=== PATIENT | male | born 1980 | race Caucasian/White ===

== ENCOUNTER 2017-07-06 17:53 | Emergency (ER) | payer BC, SELFPAY ==
[2017-07-06 17:53] VITALS: BP 145/77; PULSE 102; RESP 16; TEMP 37.1; O2SAT 97; BMI 31.7
--- NOTE | 2017-07-06 18:09 | ED.DEP ---
ED Disposition - Plan for ED Patient: Disposition: Home or Assisted Living Chief Complaint: Abd Pain Instructions: ED Gastroenteritis Viral, Dental Abscess Prescriptions: Ondansetron [Zofran Odt] 4 mg PO Q8H PRN PRN #7 tab PRN Reason: Nausea Penicillin V Potassium 500 mg PO 4X/DAY #40 tab Referrals: Care Physician,No Primary [Primary Care Provider] - Additional Instructions: Zofran as needed for nausea. Pen-Vee K for dental infection. Call and follow-up with a dentist as soon as possible. Most likely your nausea, vomiting diarrhea is from a viral gastroenteritis. If you have increasing and worsening abdominal pain or not getting better return to the ER for further evaluation. Plenty of fluids and rest.
--- NOTE | 2017-07-06 18:09 | ED.RN ---
PT DENIES N/V/D FOR THIS NURSE. PT MAIN COMPLAINT IS HIS TEETH.
--- NOTE | 2017-07-06 18:17 | ED.DCSUM_ITS ---
- ER Visit Summary Date of Service: 07/06/17 Chief Complaint: Dental pain and right lower jaw swelling. Also nausea, vomiting diarrhea last 2 days. History of Present Illness: The patient is a 36 M c/o nausea, vomiting diarrhea last 2 days. Denies any fever. No dysuria. No melena. Mild epigastric abdominal discomfort. Also right lower jaw dental pain with gum swelling and poor dentition. Patient has appointment [facility] [place] [facility] next week. He has no primary care physician. Physical Examination: Middle-aged male no acute distress vital signs are stable afebrile. He does not look septic or toxic. He does not look significantly dehydrated. HEENT exam he has very poor dentition. Multiple missing and decaying teeth. Cavities and gingivitis. No current abscess that needs to be drained at this time. Mild swelling of the right lower anterior jaw. No trismus. No trouble swallowing or breathing. No Sherman's angina. Neck nontender no lymphadenopathy. Lungs clear to auscultation bilaterally. Heart regular rate and rhythm no murmur. Abdomen soft nondistended normal bowel sounds no peritoneal signs. Both the right upper right lower quadrants are unremarkable. He has very minimal epigastric discomfort. He is moving all 4 extremities. They are neurovascularly intact. No edema. Back exam nontender. Neurologic exam is normal. Test Results: None Emergency Department Course and Treatment: Patient's history and exam is consistent with a viral gastroenteritis. He has poor dentition with early dental infection which will be treated with Pen-Vee K. Zofran for nausea. Follow-up with dentist. Treatment Plan: [] Disposition: Discharge Impression: Dental cavities, decay and gingivitis. Acute nausea vomiting diarrhea secondary to viral gastroenteritis This note was generated with [employer] dictation software. It may contain incorrect words, spelling, and punctuation that were not noted in review of the chart prior to signing ED Disposition - Plan for ED Patient: Disposition: Home or Assisted Living Chief Complaint: Abd Pain Instructions: Dental Abscess, ED Gastroenteritis Viral Prescriptions: Ondansetron [Zofran Odt] 4 mg PO Q8H PRN PRN #7 tab PRN Reason: Nausea Penicillin V Potassium 500 mg PO 4X/DAY #40 tab Referrals: Care Physician,No Primary [Primary Care Provider] - Additional Instructions: Zofran as needed for nausea. Pen-Vee K for dental infection. Call and follow-up with a dentist as soon as possible. Most likely your nausea, vomiting diarrhea is from a viral gastroenteritis. If you have increasing and worsening abdominal pain or not getting better return to the ER for further evaluation. Plenty of fluids and rest.
== END 2017-07-06 18:26 | disposition home or self-care (01) ==
LOC: ED 18:24
PROVIDERS: Emergency Provider Emergency Medicine
DX: K05.10 Chronic gingivitis, plaque induced (principal); K02.9 Dental caries, unspecified; A08.4 Viral intestinal infection, unspecified; R11.2 Nausea with vomiting, unspecified; R19.7 Diarrhea, unspecified; Z72.0 Tobacco use
CPT/HCPCS: 99282

== ENCOUNTER 2017-07-28 10:23 | Emergency (ER) | payer BC, SELFPAY ==
[2017-07-28 10:24] VITALS: BP 157/84; PULSE 107; RESP 16; TEMP 37; O2SAT 97; BMI 35.1
--- NOTE | 2017-07-28 10:39 | ED.VISSUMM ---
- ER Visit Summary Date of Service: 07/28/17 Chief Complaint: [] Nausea/vomiting History of Present Illness: The patient is a 36 M [] complaining of nausea/vomiting, abdominal pain, body aches, cough during flu season. Patient reports subjective fever. Denies significant past medical history. Physical Examination: [] Afebrile, vital signs stable. Middle-age male no acute distress. Cardiovascular exam is regular rate and rhythm. Lungs are clear to auscultation. Abdomen is soft and nontender. Test Results: [] No diagnostic or laboratory testing was warranted. Emergency Department Course and Treatment: [] Patient given intravenous fluid bolus, Phenergan, Toradol. On serial exam had improvement of symptoms. He was given a short-term prescription for Phenergan. Treatment Plan: [] Follow-up with PCP. Disposition: [] Discharge, stable. Impression: [] URI Dehydration This note was generated with [employer] dictation software. It may contain incorrect words, spelling, and punctuation that were not noted in review of the chart prior to signing ED Disposition - Plan for ED Patient: Chief Complaint: General Illness Referrals: Care Physician,No Primary [Primary Care Provider] -
--- NOTE | 2017-07-28 10:40 | ED.DEP ---
ED Disposition - Plan for ED Patient: Disposition: Home or Assisted Living Chief Complaint: General Illness Instructions: ED Flu Prescriptions: ProMETHAzine [Phenergan] 25 mg PO Q6H PRN PRN #20 tab PRN Reason: Nausea Referrals: Care Physician,No Primary [Primary Care Provider] -
[2017-07-28] MEDS: 0.9% Normal Saline 1,000 ML 1000 ML IV (10:49)
[2017-07-28] MEDS: Ketorolac 15 MG/ML Vial IV (10:50)
[2017-07-28 11:43] VITALS: BP 97/59; PULSE 75; RESP 16; O2SAT 98
== END 2017-07-28 11:44 | disposition home or self-care (01) ==
PROVIDERS: Emergency Provider Emergency Medicine
DX: J06.9 Acute upper respiratory infection, unspecified (principal); E86.0 Dehydration
CPT/HCPCS: 96361; 96374; 96375; 99284; J7030; A4216

== ENCOUNTER 2017-11-13 07:09 | Emergency (ER) | payer SELFPAY ==
[2017-11-13 07:10] VITALS: BP 141/78; PULSE 109; RESP 18; TEMP 36.4; O2SAT 99; BMI 34.0
--- NOTE | 2017-11-13 07:29 | ED.DCSUM_ITS ---
- ER Visit Summary Date of Service: 11/13/17 Chief Complaint: Dental pain History of Present Illness: The patient is a 37 M with no primary care physician or dentist. He reports he has pain in his right mandibular first premolar that began yesterday. Says sharp pain in 7-10 at worst and 410 currently. Is worsened by eating and relieved by ibuprofen. He denies any fever or other complaints. Physical Examination: Vitals: Stable. Afebrile. Mouth: No trismus. No edema of the floor of the mouth. Pain with percussion of right mandibular first premolar which has obvious caries and erosion. No focal abscess. He does have widespread dental decay. There is mild soft tissue swelling of the right mandible. General: A&O x 3. NAD. Cardiovascular exam: Regular rate and rhythm, no murmur, rub or gallop. Respiratory exam: Clear to auscultation bilaterally. No wheezes or stridor. Abdominal exam: Soft, nontender, nondistended, normal bowel sounds. No peritoneal signs. Extremity: No clubbing, cyanosis, or edema. Emergency Department Course and Treatment: Patient reports that his pain is controlled and that he can control this with NSAIDs at home. He was given a dose of penicillin here. Treatment Plan: Patient will be discharged on penicillin instructed to follow- up the dentist as soon as possible. Return to the emergency department for any worsening symptoms. Disposition: To home in improved and stable condition. Impression: 1. Dental abscess. This note was generated with [employer] dictation software. It may contain incorrect words, spelling, and punctuation that were not noted in review of the chart prior to signing ED Disposition - Plan for ED Patient: Disposition: Home or Assisted Living Chief Complaint: Dental Instructions: ED Abscess Dental Prescriptions: Penicillin V Potassium 500 mg PO 4X/DAY #40 tablet Referrals: Dentist,Your [STAFF PHYSICIAN] - As soon as possible
[2017-11-13] MEDS: Penicillin Vk 250 MG Tablet 500 MG PO (07:36)
== END 2017-11-13 07:40 | disposition home or self-care (01) ==
LOC: ED 07:29
PROVIDERS: Emergency Provider Emergency Medicine
DX: K04.7 Periapical abscess without sinus (principal); K02.9 Dental caries, unspecified; Z72.0 Tobacco use
CPT/HCPCS: 99283

== ENCOUNTER 2018-08-23 19:20 | Emergency (ER) | payer SELFPAY ==
[2018-08-23 19:20] VITALS: BMI 31.7
[2018-08-23 19:21] VITALS: BP 152/85; PULSE 99; RESP 18; TEMP 36.6; O2SAT 96; BMI 34.7
--- NOTE | 2018-08-23 19:43 | ED.VISSUMM ---
- ER Visit Summary Date of Service: 08/23/18 Chief Complaint: Dental and facial pain History of Present Illness: The patient is a 37 M who presents with dental and facial pain that is been getting worse over the past couple days. Patient describes pain as throbbing and aching. Patient states the pain is over the upper incisors and gingiva. Patient denies any fevers. Patient denies any hot or cold sensitivity. Physical Examination: Vital signs are stable. Patient is afebrile. Patient is in no acute distress. Oral mucosa is pink and moist. There are multiple dental caries. There is tenderness and some mild gingival edema noted over the right upper central and lateral incisors. There is no fluctuance. There is no discharge or drainage noted. Oropharynx is clear. Neck is supple. Trachea is midline. There is no JVD noted. Emergency Department Course and Treatment: Patient was given a prescription for Pen-Vee K. Patient was instructed to follow-up with a dentist in 7-10 days. Patient understood and was agreeable with the plan. All questions were answered. Disposition: Discharge home Impression: Infected dental caries This note was generated with [employer] dictation software. It may contain incorrect words, spelling, and punctuation that were not noted in review of the chart prior to signing ED Disposition - Plan for ED Patient: Disposition: Home or Assisted Living Diagnosis: Infected dental caries Instructions: ED Tooth Pain, ED Cavity Dental Prescriptions: Penicillin V Potassium 500 mg PO 4X/DAY #40 tab Referrals: Care Physician,No Primary [Primary Care Provider] -
[2018-08-23 19:51] VITALS: RESP 18
== END 2018-08-23 19:52 | disposition home or self-care (01) ==
PROVIDERS: Emergency Provider Emergency Medicine
DX: K02.9 Dental caries, unspecified (principal); B99.8 Other infectious disease; Z72.0 Tobacco use
CPT/HCPCS: 99282

== ENCOUNTER 2019-05-28 15:40 | Emergency (ER) | payer SELFPAY ==
[2019-05-28 15:41] VITALS: BP 164/81; PULSE 88; RESP 16; TEMP 36.7; O2SAT 97; BMI 34.0
--- NOTE | 2019-05-28 16:07 | ED.VIS.INJ ---
History of Present Illness Chief Complaint: Laceration Narrative: Patient presenting for evaluation secondary to a lip laceration. Patient was tying down a load on his truck when a bungee cord snapped and hooked his lower lip. He has lacerations both on the inside and the outside of the lip as the hook went through and through. His tetanus status is greater than 10 years. Patient reports only mild pain worse with palpation. No other associated symptoms. Past Medical History - Allergies and Home Meds Allergies/Adverse Reactions: Allergies No Known Allergies Allergy (Verified 08/23/18 19:23) Primary Care Physician: Care Physician,No Primary [Primary Care Provider] - Past Medical History: None Surgical History: no surgical history Smoking Status: Current every day smoker Alcohol: None Drugs: None Review of Systems General: Denies: Fever Eyes: Denies: Visual changes - bilaterally Respiratory: Denies: Dyspnea Gastrointestinal: Denies: Vomiting Skin: Reports: Wounds Neurological: Denies: Headache Hematologic: Denies: Easy bruising, Easy bleeding Allergy: Denies: Swelling of the mouth, Swelling of the tongue Physical Exam Vital Signs/Narrative: Vital Signs Temp Pulse Resp BP Pulse Ox 05/28/19 15:41 98.1 F 88 16 164/81 H 97 Inital Vital Signs reviewed: Yes General: Well nourished, Well developed Head: Normocephalic Eyes: EOMI ENT: - - Oral exam demonstrates the patient have a through and through laceration on the right side of the lip. The outer portion of the laceration measures mainly only about a half a centimeter, the inner portion of the laceration on the oral mucosa is maybe a centimeter and 1/2 to 2 cm. No evidence of dental injury. No trismus. Neck: Full ROM Cardiovascular: Regular rate Respiratory: No distress Skin: Normal color Neurological: Alert, Oriented x3 Psychological: Normal affect Diagnostic/Tx/Re-eval - Medical Decision Making Patient presented secondary to a lip laceration. Wound was addressed as noted in the procedure note. Tetanus status was updated. Patient was discharged with instructions on how to keep his intraoral laceration clean, and follow-up for suture removal in 3 to 5 days. Laceration No standard instances Comment: There was a lower lip outer laceration that was directly on the vermilion border and measures may be about 5 mm. There was a mucosal laceration directly opposing that laceration that measures may be 2 cm. Wounds were anesthetized with a total of 2 cc of 1% lidocaine with epinephrine with good anesthesia. The wounds were then probed with a 14-gauge Angiocath, and did not appear to communicate surprisingly. The mucosa wound was irrigated with 200 cc of sterile saline under pressure with an Angiocath and then was approximated using a single simple interrupted 5-0 Vicryl fast-absorbing suture. The outer wound was irrigated with a total of 150 cc of saline, and then the vermilion border was approximated using a 5-0 Vicryl fast-absorbing suture. Patient tolerated this well. ED Disposition - Plan for ED Patient: Disposition: Home or Assisted Living Diagnosis: Lip laceration Instructions: LACERATION, Lip/Mouth Additional Instructions: Follow-up with your primary care physician in 3 to 5 days for suture removal
[2019-05-28] MEDS: Diphth,Pertuss(Acell),Tet Vac 0.5 ML Vial IM (16:14)
[2019-05-28] MEDS: BACITRACIN 15 GM Tube 1 APPLIC TOPICAL (17:44)
== END 2019-05-28 17:49 | disposition home or self-care (01) ==
PROVIDERS: Emergency Provider Emergency Medicine
DX: S01.511A Laceration without foreign body of lip, initial encounter (principal); S01.512A Laceration without foreign body of oral cavity, initial encounter; W26.8XXA Contact with other sharp object(s), not elsewhere classified, initial encounter; Y93.9 Activity, unspecified; Y92.9 Unspecified place or not applicable; F17.200 Nicotine dependence, unspecified, uncomplicated
CPT/HCPCS: 12011; 90715; 99283

== ENCOUNTER 2019-11-07 12:43 | Emergency (ER) | payer SELFPAY ==
[2019-11-07 12:45] VITALS: BP 152/69; PULSE 98; RESP 16; TEMP 36.8; O2SAT 97; BMI 35.1
--- NOTE | 2019-11-07 12:59 | EKG12_ITS ---
Test Reason : CP Blood Pressure : / mmHG Vent. Rate : 091 BPM Atrial Rate : 091 BPM P-R Int : 118 ms QRS Dur : 090 ms QT Int : 354 ms P-R-T Axes : 039 032 039 degrees QTc Int : 435 ms Normal sinus rhythm Normal ECG Confirmed by DARRELL CARRIZALES, GIANFRANCO ([id number]), video tape editor EUGENIA JUNIOR ([id number]) on 11/11/2019 2:03:38 PM Referred By: FAROOQ Confirmed By:SHAUNA RAMÍREZ MD
--- NOTE | 2019-11-07 12:59 | RAD_ITS ---
STUDY: X-RAY CHEST REASON FOR EXAM: Male, 39 years old. MID CHEST PAINS TECHNIQUE: Single AP portable view of the chest. COMPARISON: Comparison is made with prior study dated January 28, 2016. FINDINGS: EKG electrodes are seen. The lungs are clear and expanded. There is no demonstrated pleural abnormality. Normal size heart. Normal mediastinum and kuldip. Normal visualized pulmonary arteries. Normal visualized aortic arch and descending thoracic aorta. Normal visualized thoracic spine. Normal visualized ribs, clavicles, and shoulders. There is no demonstrated abnormality of the visualized soft tissue structures of the upper abdomen. RAD/Chest 1 View (Portable) IMPRESSION: Normal x-ray examination of the chest. Electronically Signed: Js Blackwell, at 13:52 EDT , Service support ,
[2019-11-07] MEDS: Aspirin 81 MG TAB.CHEW 324 MG PO (13:08)
--- NOTE | 2019-11-07 13:09 | CT_ITS ---
STUDY: CTA CHEST REASON FOR EXAM: Male, 39 years old. RT SIDED PLEURITIC CP, DYSPNEA RADIATION DOSAGE (If Supplied By Facility): CTDIvol = ( 14.99 ) mGy, DLP = ( 532.83 ) mGycm TECHNIQUE: The examination was performed with the intravenous administration of 100 CC ISOVUE 370. Post-processing of the angiographic images was performed, with multiplanar reformation and 3D reconstruction. Individualized dose optimization techniques were used for this CT. COMPARISON: Comparison is made with prior study dated January 28, 2016. FINDINGS: Small benign-appearing bilateral axillary lymph nodes. Normal enhancement of the main pulmonary artery and right and left pulmonary arteries. Normal enhancement of the bilateral peripheral pulmonary arteries. There is no demonstrated pulmonary embolism. Normal thoracic aorta and visualized great vessels. There is no demonstrated aortic dissection. Normal heart and pericardium. Normal mediastinum. Normal hilar regions. Normal visualized trachea and bronchi. The lungs are well expanded. There is a 6.3 mm noncalcified nodule in the peripheral aspect of the left upper lobe as seen on axial image #134 and coronal image #110. Normal pleura. Normal chest wall structures. Normal osseous structures. Small hiatal hernia. CT/CTA Chest W/WO Contrast IMPRESSION: No evidence of pulmonary embolism. 6.3 mm noncalcified nodule in the peripheral aspect of the left upper lobe as seen on axial image #134. A 12 month follow-up examination is recommended. Electronically Signed: Js Blackwell, at 14:30 EDT , Service support ,
[2019-11-07 13:10] VITALS: BP 129/85; PULSE 96; RESP 25; O2SAT 97
--- NOTE | 2019-11-07 13:11 | ED.VISSUMM ---
- ER Visit Summary Date of Service: 11/07/19 Chief Complaint: Right Sided pleuritic chest pain History of Present Illness: The patient is a 39 M patient in past medical history. 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 States on Monday 2 days ago he started having right-sided chest pain that is worse with deep breathing. Denies any hemoptysis. Not associated with exertion. No radiation to his jaw, arms or back. No hemoptysis. Mild shortness of breath. No history of DVT or PE. No leg pain or swelling. No melena. He is never had any cardiac disease. He does occasionally smoke. Physical Examination: Middle-aged male no acute distress vital signs stable afebrile pulse ox 97% room air no signs hypoxia. H EENT exam unremarkable. Neck nontender no JVD. Lungs clear to auscultation bilaterally. Heart regular rhythm rate about 89 no murmur. Chest wall is nontender. Abdomen soft nontender normal bowel sounds no peritoneal signs. Remedies moves all 4. Calves nontender no edema no cords. Neurologically is awake alert with no focal motor deficits. Test Results: Chest x-ray portable 1 view read by myself and the radiologist as no acute abnormality. Right leg CTA of the chest shows no PE nor dissection. There is an incidental finding of a left upper lobe nodule 6.3 mm as I discussed with the patient and will need to be re-evaluated in 6 to 12 months. No ischemia. CBC white count 12.9. Hemoglobin 15. Chemistries normal. Troponin normal. Emergency Department Course and Treatment: Patient with right-sided pleuritic chest pain that has risk factor of blood clots and PE due to his job which is a long-distance team otr truck driver. Undergo a cardiac and a pulmonary emboli work-up including a CTA. Treated with a liter of normal saline. Repeat exam patient is doing well at 1540. Patient is comfortable being discharged to home. He and I discussed all his test results including the nodule. Treatment Plan: Tylenol and/or Motrin for pain. Follow-up smoking. Outpatient follow-up. Return if worse. Disposition: Discharge Impression: Acute right-sided pleuritic chest pain of uncertain etiology This note was generated with [employer] software. It may contain incorrect words, spelling, and punctuation that were not noted in review of the chart prior to signing ED Disposition - Plan for ED Patient: Referrals: Care Physician,No Primary [Primary Care Provider] -
[2019-11-07] MEDS: 0.9% Normal Saline 1,000 ML 999 ML IV (13:21)
[2019-11-07 13:32] LABS: Absolute Lymphocyte Count 3.72 X10^3/uL (0.83-4.51); Absolute Neutrophil Count 7.7 X10^3/uL (2.0-7.7); Basophil# 0.06 X10^3/uL; Basophil% 0.5 % (0-1); Eosinophil# 0.38 X10^3/uL; Hemoglobin 15.5 g/dL (13.0-16.5); Lymphocyte # 3.72 X10^3/ul (4.0); Lymphocyte % 28.9 % (19-41); Mean Corpuscular Hgb 29.4 pg (27.0-32.0); Mean Corpuscular Volume 89.2 fL (80-94); Mean Platelet Vol. 10.4 fl (6.2-12.0); Monocyte# 0.95 X10^3/uL; Monocyte% 7.4 % (0-10); NRBC Flagged by Analyzer 0 % (0-5); Neutrophil % 59.7 % (47-70); Platelet Count 269 K/mm3 (150-450); RBC Distribution Width CV 14.2 % (11.6-14.6); RBC Distribution Width SD 46.1 fl (35.1-43.9); Red Blood Count 5.27 M/mm3 (4.6-6.2); White Blood Count 12.9 K/mm3 (4.4-11.0)
[2019-11-07 13:46] LABS: Anion Gap 7 (5-15); BUN 20 mg/dL (7-18); BUN/Creat Ratio 19.2 RATIO (10-20); Chloride 104 mmol/L (98-107); Creatinine, Serum 1.04 mg/dL (0.70-1.30); EST Glomerular Filtration Rate 84 mL/min (>60); Est Glom Filt Rate - Afr Amer 102 mL/min (>60); Estimated Creatinine Clearance 94.42 ml/min; Glucose 121 mg/dL (74-106); Sodium Level 138 mmol/L (136-145)
--- NOTE | 2019-11-07 15:47 | ED.DEP ---
ED Disposition - Plan for ED Patient: Disposition: Home or Assisted Living Instructions: ED Chest Pain Atypical Unkn Cause Referrals: Vinny Rosas MD [STAFF PHYSICIAN] - 1 Week Additional Instructions: . Tylenol and Motrin for pain. Follow-up with a local primary care physician. Stop smoking. Return to the ER if worse. On your CAT scan you had a left upper lobe nodule which will need to be reevaluated once in 6 to 12 months.
[2019-11-07 15:52] VITALS: BP 122/60; PULSE 69; RESP 16; O2SAT 99
--- OUTSIDE RECORDS SUMMARY | 2020-03-15 11:48 | XMS RPT_ITS | CCD ---
:1980 External Reference #:[id number] Author Organization [employer] Care Team Providers Name Role Phone LILY CHING Unavailable Unavailable NO FAMILY PHYSICIAN, 837 Unavailable Unavailable NO FAMILY, PHYSICIAN Primary Care Provider Unavailable Allergies Reported Allergen Reaction(s) Severity Date of Onset Location Doxycycline Redness of Skin 12-03-2019 [facility] ([id number]) Medications Medication Name Sig Date Prescriber Location Ondansetron Ondansetron Active 4 MG 12-04-2019 [facility] Oral every 6 to 8 hours [facility] ([id number]) December 04, 2019 2:05am pantoprazole Pantoprazole Active 20 MG 12-04-2019 [facility] Daily December 03, [facility] (11418) 2019 2:05am Problems Category Problem Name Status Date Location Abdominal pain Abdominal pain Active [facility] ([id number]) Results Result Name Value Range Unit Interpretation Flag Date Location xr chest 1 view on 2020-02-05 XR CHEST 1 VIEW ORIGINAL Normal 02-05-2020 [facility] XR CHEST 1 VIEW PORTABLE AP [facility] [place] ([place] ([id number]) TIME: 10:08 PM CLINICAL STATEMENT: chest pain COMPARISON: None FINDINGS: The cardiac silhou ette is stable. There is no consolidation, vascular congestion, pleural effusion, or pneumothorax shown. There is no acute osseous abnormality demonstrated. IMPRESSION: No acute finding. I have personally reviewed t he images of this examination and agree with the resident's findings and interpretation. Interpreted By: Laith Solano MD Preliminary Report By: Vladimir Moreno MD Electronically Signed By: Laith Solano MD Dictated Date: 02/04/2020 10:34:54 PM Prelim Date: 02/04/2020 10:36:50 PM Sign Date: 02/04/2020 10:57:27 PM Ordering Provider:Jason bowen on 2020-02-05 Troponin I.cardiac <0.020 0.000-0.040 ng/mL Normal 0 [facility]Vol[facility] ([address] Comment: Result Comment: Troponin I r eference range: 0.00-0.040 ng/mL Negative an d non-diagnostic. >0.040 ng/mL Consistent with cardiac damage, increased clinical risk and possibility of myocardial in farction. Serial measurements, a rise & fall in test results, clinical histo ry, appropriate symptoms and/or ECG changes may help assess possibility of [place]. *Other non-acute coronary sy ndrome conditions such as CHF, myoc arditis, pulmonary emboli, sepsis and cardiac surgery could result in myoc ardial damage and increased troponi n levels. Performed By: #### CBC, ADIF F, ANEU, GFR, DIMER #### [address] [address] #### BMP, TROP #### [address] [address] lip on 2020-02-05 Lipase Level 68 73-393 U/L Low 02-05-2020 [facility] ([place] (59705) Comment: Performed By: #### CBC, ADIF F, ANEU, GFR, DIMER #### [address] [address] #### BMP, TROP #### [address] [address] covd19 on 9 COVID-19 Int Normal 02-05-2020 [facility] ([place] (30320) Comment: Result Comment: Negative res ults do not preclude SARS-CoV-2 infection and should not be used as the sole basis for patient management decisions. Negative results must be combined with clinical observati ons, patient history, and ep idemiological information. There is a risk of false neg ative values resulting from improperly collected, transported, or handled specimens. There is a risk of false neg ative values due to the presence of sequence variants in the pathogen targets of the assay, procedural errors, amplification inhibitors in specimens, or inadequate numbers of organisms for amplification . KALE SARS-CoV-2 Assay is a Real-Time reverse-transcriptase polymerase chain reaction (RT-PCR) based qualitative in vitro diagnostic test intended for the qualitative detection of nucleic acid from the SARS-CoV-2 in nasopharyngeal swab specimens collected from individuals suspected of COVID-19 by their healthcare provider. Testing is limited to laboratories certified under the Clinical Laboratory Impr ovement Amendments of 1988 ( CLIA), 42 U.S.C. ?263a, to perform moderate and high complexity tests. COVID-19 Int Performed By: #### CBC, ADIF F, ANEU, GFR, DIMER #### [place] [address] #### BMP, TROP #### [place] [address] COVID-19 Result Negative Negative Normal 02-05-2020 [facility] ([place] (70802) Comment: Performed By: #### CBC, ADIF F, ANEU, GFR, DIMER #### [place] [address] #### BMP, TROP #### [place] [address] Date of Onset 2020020202-05-2020 [facility] ([place] (29389) Comment: Performed By: #### CBC, ADIF F, ANEU, GFR, DIMER #### [place] [address] #### BMP, TROP #### [place] [address] Employed in Healthcare No Normal 020 [facility] ([place] (99866) Comment: Performed By: #### CBC, ADIF F, ANEU, GFR, DIMER #### [place] [address] #### BMP, TROP #### [place] [address] First Test Yes Normal 02-05-2020 [facility] ([place] (91758) Comment: Performed By: #### CBC, ADIF F, ANEU, GFR, DIMER #### [address] [address] #### BMP, TROP #### [place] [address] Hospitalized No Normal 02-05-2020 [facility] [place] (77501) Comment: Performed By: #### CBC, ADIF F, ANEU, GFR, DIMER #### [place] [address] #### BMP, TROP #### [place] [address] ICU No Normal 02-05-2020 [facility] [place] (31421) Comment: Performed By: #### CBC, ADIF F, ANEU, GFR, DIMER #### [place] [address] #### BMP, TROP #### [place] [address] Not Normal 02-05-2020 [facility] [place] (10494) Comment: Performed By: #### CBC, ADIF F, ANEU, GFR, DIMER #### [place] [address] #### BMP, TROP #### [place] [address] Resides in Congregate Care No Normal [facility] ([place] Setting (04086) Comment: Performed By: #### CBC, ADIF F, ANEU, GFR, DIMER #### [place] [address] #### BMP, TROP #### [place] [address] Symptomatic as Defined by CDC Yes Normal 02-05-2020 [facility] ([place] (0000 0) Comment: Performed By: #### CBC, ADIF F, ANEU, GFR, DIMER #### [place] [address] #### BMP, TROP #### [place] [address] cmp on 2020-02-05 Albumin [Mass/Vol] 3.7 3.5-5.0 G/dL Normal 02-05-2020 [facility] ([place] (18104) Comment: Performed By: #### CBC, ADIF F, ANEU, GFR, DIMER #### [place] [address] #### BMP, TROP #### [place] [address] Albumin/Globulin [Mass ratio] 1.0 1.1-2.5 ratio Low 02-05-2020 [facility] ([place] (06898) Comment: Performed By: #### CBC, ADIF F, ANEU, GFR, DIMER #### [place] [address] #### BMP, TROP #### [place] [address] ALP [Catalytic activity/Vol] 124 40-135 U/L Normal 0 02-05-2020 [facility] ([place] (96750) Comment: Performed By: #### CBC, ADIF F, ANEU, GFR, DIMER #### [place] [address] #### BMP, TROP #### [place] [address] ALT [Catalytic activity/Vol] 51 10-35 U/L High 0 02-05-2020 [facility] ([place] (0000 0) Comment: Performed By: #### CBC, ADIF F, ANEU, GFR, DIMER #### [place] [address] #### BMP, TROP #### [place] [id number] AST [Catalytic activity/Vol] 27 10-40 U/L Normal 0 02-05-2020 [facility] ([place] (0000 0) Comment: Performed By: #### CBC, ADIF F, ANEU, GFR, DIMER #### [place] [address] #### BMP, TROP #### [address] [address] Bili Total 0.3 0.2-1.0 mg/dL Normal 02-05-2020 [facility] ([place] (99484) Comment: Result Comment: Use of this assay is not recommended for patients undergoing treatment with eltrombopag d ue to the potential for falsely elevated results. Performed By: #### CBC, ADIF F, ANEU, GFR, DIMER #### [place] [address] #### BMP, TROP #### [address] [address] Calcium [Mass/Vol] 9.0 8.4-10.2 mg/dL Normal 02-05-2020 [facility] ([place] (0000 0) Comment: Performed By: #### CBC, ADIF F, ANEU, GFR, DIMER #### [place] [address] #### BMP, TROP #### [place] [address] Chloride [Moles/Vol] 103 98-107 mmol/L Normal 0 [facility] ([place] (0000 0) Comment: Performed By: #### CBC, ADIF F, ANEU, GFR, DIMER #### [address] [address] #### BMP, TROP #### [place] [address] CO2 [Moles/Vol] 25 22-29 mmol/L Normal 02-05-2020 [facility] ([place] (25081) Comment: Performed By: #### CBC, ADIF F, ANEU, GFR, DIMER #### [place] [address] #### BMP, TROP #### [address] [address] Creatinine [Mass/Vol] 1.09 0.70-1.30 mg/dL Normal 02-05-20 20 [facility] ([place] (20124) Comment: Performed By: #### CBC, ADIF F, ANEU, GFR, DIMER #### [address] [address] #### BMP, TROP #### [address] [address] Electrolyte Balance 11.0 mEq/L Normal 02-05-2020 [facility] ([place] (52752) Comment: Performed By: #### CBC, ADIF F, ANEU, GFR, DIMER #### [place] [address] #### BMP, TROP #### [address] [address] Globulin (S) [Mass/Vol] 3.7 G/dL Normal 2019 [facility] ([place] (30696) Comment: Performed By: #### CBC, ADIF F, ANEU, GFR, DIMER #### [place] [address] #### BMP, TROP #### [address] [address] Glucose [Mass/Vol] 100 70-105 mg/dL Normal 02-05-2020 [facility] ([place] (90605) Comment: Performed By: #### CBC, ADIF F, ANEU, GFR, DIMER #### [address] [address] #### BMP, TROP #### [address] [address] Potassium [Moles/Vol] 4.1 3.5-5.1 mmol/L Normal 02-05-20 [facility] ([place] (0000 0) Comment: Performed By: #### CBC, ADIF F, ANEU, GFR, DIMER #### [place] [id number] #### BMP, TROP #### [address] [address] Protein [Mass/Vol] 7.4 6.4-8.2 G/dL Normal 02-05-2020 [facility] ([place] (39526) Comment: Performed By: #### CBC, ADIF F, ANEU, GFR, DIMER #### [address] [address] #### BMP, TROP #### [address] [address] Sodium [Moles/Vol] 139 136-145 mmol/L Normal 02-05-2020 [facility] ([place]) (0000 0) Comment: Performed By: #### CBC, ADIF F, ANEU, GFR, DIMER #### [place] [address] #### BMP, TROP #### [address] [address] Urea nitrogen [Mass/Vol] 16 7-18 mg/dL Normal 02-04 [facility] ([place] (0000 0) Comment: Performed By: #### CBC, ADIF F, ANEU, GFR, DIMER #### [place] [address] #### BMP, TROP #### [address] [address] Urea nitrogen/Creatinine [Mass 15 7-27 ratio Normal 02-05-2020 [facility] ratio] [facility] [place] ([place] ([address]327) Comment: Performed By: #### CBC, ADIF F, ANEU, GFR, DIMER #### [address] [address] #### BMP, TROP #### [address] [address] cbc on 2020-02-05 Erythrocyte distribution 14.0 11.5-14.5 % Normal 02-04 [facility] (RBC) [Ratio] [facility] [place] ([address]22) Comment: Performed By: #### CBC, ADIF F, ANEU, TROP, LIP, CMP, GFR #### [address] [address] Hematocrit (Bld) [Volume 47.5 42.0-52.0 % Normal 02-04 [facility] fraction] ([place]) (0000 0) Comment: Performed By: #### CBC, ADIF F, ANEU, TROP, LIP, CMP, GFR #### [address] [address] Hemoglobin (Bld) 16.0 14.0-18.0 G/dL Normal 02-05-2020 [facility] [Mass/Vol] [facility] ([place] (15959) Comment: Performed By: #### CBC, ADIF F, ANEU, TROP, LIP, CMP, GFR #### [address] [address] MCH (RBC) [Entitic mass] 29.4 27.0-31.2 pg Normal 02-04 [facility] ([place]) (0000 0) Comment: Performed By: #### CBC, ADIF F, ANEU, TROP, LIP, CMP, GFR #### [address] [address] MCHC (RBC) [Mass/Vol] 33.7 31.8-35.4 G/dL Normal 02-05-20 20 [facility] ([place]) (0000 0) Comment: Performed By: #### CBC, ADIF F, ANEU, TROP, LIP, CMP, GFR #### [address] [address] MCV (RBC) [Entitic vol] 87.3 80.0-94.0 fL Normal 2019 [facility] ([place]) (0000 0) Comment: Performed By: #### CBC, ADIF F, ANEU, TROP, LIP, CMP, GFR #### [address] [address] Platelet mean volume 8.6 7.4-10.4 fL Normal 0 [facility] (Bld) [Entitic vol] ([place]) (92308) Comment: Performed By: #### CBC, ADIF F, ANEU, TROP, LIP, CMP, GFR #### [address] [address] Platelets (Bld) [#/Vol] 251 130-400 10 3/mcL Normal 2019 [facility] ([place]) (10162) Comment: Performed By: #### CBC, ADIF F, ANEU, TROP, LIP, CMP, GFR #### [address] [address] RBC (Bld) [#/Vol] 5.45 4.04-6.13 10 6/mcL Normal 02-05-2020 [facility] ([place] (0000 0) Comment: Performed By: #### CBC, ADIF F, ANEU, TROP, LIP, CMP, GFR #### [address] [address] WBC (Bld) [#/Vol] 12.60 4.60-10.80 10 3/mcL High 02-05-2020 [facility] ([place] (0000 0) Comment: Performed By: #### CBC, ADIF F, ANEU, TROP, LIP, CMP, GFR #### [address] [address] .neuabs on Neutrophils (Bld) 7.70 2.85-6.16 10 3/mcL High 02-05-2020 [facility] [#/Vol] [facility] [place] ([place] ([address]13) Comment: Performed By: #### CBC, ADIF F, ANEU, GFR, DIMER #### [address] [address] #### BMP, TROP #### [address] [address] .gfr on 2020-02-05 GFR 91 ml/min/1.73sqm Normal 09-0 [facility] ([place] (0000 0) Comment: Result Comment: GFR Population mean for Afri can Cuban, Non- Americans Ages 20-29 = 116 mL/min/1.73 sq.m. Ages 30-39 = 107 mL/min/1.73 sq.m. Ages 40-49 = 99 mL/min/1.73 sq.m. Ages 50-59 = 93 mL/min/1.73 sq.m. Ages 60-69 = 85 mL/min/1.73 sq.m. Ages 70+ = 75 mL/min/1.73 sq .m. Chronic Kidney Disease: Less than 60 mL/min/1.73 square meters End Stage Renal Disease: Les s than 15 mL/min/1.73 square meters Performed By: #### CBC, ADIF F, ANEU, GFR, DIMER #### [address] [address] #### BMP, TROP #### [address] [address] GFR Non- 75 ml/min/1.73sqm Normal 02-05-2020 [facility] ([place] (61554) Comment: Result Comment: GFR Population mean for Afri can Cuban, Non- Americans Ages 20-29 = 116 mL/min/1.73 sq.m. Ages 30-39 = 107 mL/min/1.73 sq.m. Ages 40-49 = 99 mL/min/1.73 sq.m. Ages 50-59 = 93 mL/min/1.73 sq.m. Ages 60-69 = 85 mL/min/1.73 sq.m. Ages 70+ = 75 mL/min/1.73 sq .m. Chronic Kidney Disease: Less than 60 mL/min/1.73 square meters End Stage Renal Disease: Les s than 15 mL/min/1.73 square meters Performed By: #### CBC, ADIF F, ANEU, GFR, DIMER #### [address] [address] #### BMP, TROP #### [address] [address] .auto diff on 02-04 Ammonia (P) [Mass/Vol] 1.60 0.15-1.00 10 3/mcL High 020 [facility] ([place] (30404) Comment: Performed By: #### CBC, ADIF F, ANEU, TROP, LIP, CMP, GFR #### [address] [address] Basophils (Bld) 0.10 0.00-0.19 10 3/[facility] Normal 02-05-2020 [facility] [#/Vol] [facility] [place] ([address]) Comment: Performed By: #### CBC, ADIF F, ANEU, TROP, LIP, CMP, GFR #### [address] [address] Basophils/100 WBC (Bld) 0.8 0.0-2.5 % Normal 2019 [facility] ([place] (0000 0) Comment: Performed By: #### CBC, ADIF F, ANEU, TROP, LIP, CMP, GFR #### [address] [address] Eosinophils (Bld) 0.40 0.00-0.40 10 3/mcL Normal 02-05-2020 [facility] [#/Vol] [facility] [place] ([place]) (25662) Comment: Performed By: #### CBC, ADIF F, ANEU, TROP, LIP, CMP, GFR #### [address] [address] Eosinophils/100 WBC (Bld) 2.9 0.0-7.0 % Normal [facility] ([place]) (0000 0) Comment: Performed By: #### CBC, ADIF F, ANEU, TROP, LIP, CMP, GFR #### [address] [address] Lymphocytes (Bld) 2.80 0.77-3.85 10 3/mcL Normal 02-05-2020 [facility] [#/Vol] [facility] [place] ([place] ([address]77) Comment: Performed By: #### CBC, ADIF F, ANEU, TROP, LIP, CMP, GFR #### [address] [address] Lymphocytes/100 WBC (Bld) 22.6 10.0-50.0 % Normal [facility] ([place]) (31964) Comment: Performed By: #### CBC, ADIF F, ANEU, TROP, LIP, CMP, GFR #### [address] [address] Monocytes/100 WBC (Bld) 12.9 1.7-13.0 % Normal 2019 [facility] ([place]) (0000 0) Comment: Performed By: #### CBC, ADIF F, ANEU, TROP, LIP, CMP, GFR #### [place] [address] [place], [place] [address] Neutrophils/100 WBC (Bld) 60.8 37.0-80.0 % Normal [facility] ([place]) (17629) Comment: Performed By: #### CBC, ADIF F, ANEU, TROP, LIP, CMP, GFR #### [facility] [address] [place], [place] [address] urine culture on 16-12-07 Bacteria identified 20,000 colonies/ml mixed Rachael l 12-04-2019 [facility] Cx Nom (U) bacterial skin contaminants [facility] (31768) PERFORMED BY: [address] [address] PATHOLOGIST RETAIL GENERAL MANAGER LELA NIXON M.D. Comment: Performed By: #### ADDONUAPL US, CUU #### [facility] [address] [place] [address] [place] dipstick and microscopic on 2019-12-04 Appearance (U) Clear Clear Normal 12-04-2019 [facility] (47482) Comment: Order Comment: Name Collecti on Type:: Clean-Voided Midstream Performed By: #### ADDONUAPL US, CUU #### [facility] [address] [place] [address] [place] Bacteria LM.HPF (Urine None Seen None Seen Normal [address] [place] [address]) [#/Area] [facility] Center (13655) Comment: Order Comment: Name Collecti on Type:: Clean-Voided Midstream Performed By: #### ADDONUAPL US, CUU #### [facility] [address] [place] [address] [place] Bilirubin,Urine Negative Negative Normal 12-04-2019 [facility] (00 000) Comment: Order Comment: Name Collecti on Type:: Clean-Voided Midstream Performed By: #### ADDONUAPL US, CUU #### [facility] [address] [place] [address] [place] Color (U) Yellow Yellow Normal 12-04-2019 [facility] (14671) Comment: Order Comment: Name Collecti on Type:: Clean-Voided Midstream Performed By: #### ADDONUAPL US, CUU #### [facility] [address] [place] [id number] [facility] Glucose Ql (U) Normal Normal Normal 12-04-2019 [facility] (77472) Comment: Order Comment: Name Collecti on Type:: Clean-Voided Midstream Performed By: #### ADDONUAPL US, CUU #### [facility] [address] [place] [id number] [facility] Hyaline Casts,Urine 0-8 0-8 Normal 12-04-2019 [facility] (61993) Comment: Order Comment: Name Collecti on Type:: Clean-Voided Midstream Result Comment: PERFORMED BY : [facility] [address] [place] [address] PATHOLOGIST RETAIL GENERAL MANAGER LELA NIXON M.D. Performed By: #### ADDONUAPL US, CUU #### [facility] [address] [place] [address] [facility] Ketones Ql (U) Negative Negative Normal 12-04-2019 [facility] (00 000) Comment: Order Comment: Name Collecti on Type:: Clean-Voided Midstream Performed By: #### ADDONUAPL US, CUU #### [facility] [address] [place] [address] [facility] Leukocyte esterase Test 2+ Negative High 2019 [facility] Ql (U) Center (42296) Comment: Order Comment: Name Collecti on Type:: Clean-Voided Midstream Performed By: #### ADDONUAPL US, CUU #### [facility] [address] [place] [id number] [place] Nitrite,Urine Negative Negative Normal 12-04-2019 [facility] (25193) Comment: Order Comment: Name Collecti on Type:: Clean-Voided Midstream Performed By: #### ADDONUAPL US, CUU #### [facility] [address] [place] [address] Occult Blood,Urine Trace Negative High 12-04-2019 [facility] (92478) Comment: Order Comment: Name Collecti on Type:: Clean-Voided Midstream Result Comment: PERFORMED BY : [facility] [address] [place], [place] [address] [address] PATHOLOGIST RETAIL GENERAL MANAGER LELA NIXON M.D. Performed By: #### ADDONUAPL US, CUU #### [facility] [address] [place] [address] pH (U) 5.0 5.0-9.0 [pH] Normal 12-04-2019 [facility] (17345) Comment: Order Comment: Name Collecti on Type:: Clean-Voided Midstream Performed By: #### ADDONUAPL US, CUU #### [facility] [address] [place] [address] Protein (U) [Mass/Vol] Negative Negative mg/dL Normal 020 [facility] nter (17726) Comment: Order Comment: Name Collecti on Type:: Clean-Voided Midstream Performed By: #### ADDONUAPL US, CUU #### [facility] [address] [place] [address] [place] RBC LM.HPF (Urine sed) 0-1 0-4 /[HPF] Normal 020 [facility] [#/Area] Center (00 000) Comment: Order Comment: Name Collecti on Type:: Clean-Voided Midstream Performed By: #### ADDONUAPL US, CUU #### [facility] [address] [place] [address] [place] Specificy [place],Urine 1.021 1.001-1.030 Normal [facility] nter (90828) Comment: Order Comment: Name Collecti on Type:: Clean-Voided Midstream Performed By: #### ADDONUAPL US, CUU #### [facility] [address] [place] [address] [place] Squamous Epithelial 0-1 0-2 Normal 12-04-2019 [facility] Cell,Urine Center (0 0000) Comment: Order Comment: Name Collecti on Type:: Clean-Voided Midstream Performed By: #### ADDONUAPL US, CUU #### [facility] C tr [address] [place] [address] Urobilinogen,Urine Normal Normal Normal 12-04-2019 [facility] (00 000) Comment: Order Comment: Name Collecti on Type:: Clean-Voided Midstream Performed By: #### ADDONUAPL US, CUU #### [facility] C tr [address] WBC LM.HPF (Urine sed) 10-19 0-4 High 08- 020 [facility] [#/Area] Center (00 000) Comment: Order Comment: Name Collecti on Type:: Clean-Voided Midstream Performed By: #### ADDONUAPL US, CUU #### [facility] [address] [place] [address] urine urobilinogen measurement by automa max test strip (mass/volume) on 2019-12-03 Urobilinogen (U) [Mass/Vol] Normal mg/dL Normal 12-03-2019 [facility] r (92863) urine total bilirubin detection by test strip on 2019-12-03 Bilirubin Ql (U) Negative Negative 12-03-2019 [facility] (11317) urine protein measurement by automated t est strip (mass/volume) on 2019-12-03 Protein (U) [Mass/Vol] Negative mg/dL Negative mg/dL [facility] Ct r (32273) urine ph measurement by automated test s trip on 2019-12-03 pH (U) 5.0 5.0-9.0 [pH] 12-03-2019 [facility] (90634) urine nitrite detection by test strip on 2019-12-03 Nitrite Ql (U) Negative Negative 12-03-2019 [facility] (35860) urine leukocyte esterase detection by au tomated test strip on 2019-12-03 Leukocyte esterase Auto test 2+ Negative 0 12-03-2019 [facility] strip Ql (U) Ctr (00 000) urine ketones measurement by automated t est strip (mass/volume) on 2019-12-03 Ketones (U) [Mass/Vol] Negative Negative 020 [facility] (33072 ) urine hemoglobin detection by automated test strip on 2019-12-03 Hemoglobin Auto test strip Trace Negative [facility] Ql (U) Ctr (58290 ) urine glucose measurement by automated t est strip (mass/volume) on 2019-12-03 Glucose Auto test strip Normal mg/dL Normal [facility] (U) [Mass/Vol] Medic al Ctr (72105) urine clarity by refractometry automated on 2019-12-03 Clarity Refractometry automated Clear Clear 12-03-2019 [facility] (U) Ctr (24978 ) urine bacteria detection by automated me thod on 2019-12-03 Bacteria Auto Ql (U) None seen None Seen 0 [facility] (60389 ) squamous epithelial cells detection in u rine sediment by light microscopy on 2019-12-03 Epithelial cells.squamous LM Ql 0-1 [HPF] 12-03-2019 [facility] (Urine sed) Ctr (000 00) specific gravity of urine by automated t est strip on 2019-12-03 Specific gravity (U) [Rel 1.021 1.001-1.030 [facility] density] Ctr (16985 ) serum or plasma urea nitrogen measuremen t (mass/volume) on 2019-12-03 Urea nitrogen [Mass/Vol] 14 9-23 mg/dL 12-02 [facility] (34182) serum or plasma total carbon dioxide janice surement (moles/volume) on 2019-12-03 CO2 [Moles/Vol] 23.7 22.0-30.0 mmol/L 12-03-2019 [facility] (29154) serum or plasma total bilirubin measurem ent (mass/volume) on 2019-12-03 Bilirubin [Mass/Vol] 0.3 0.3-1.2 mg/dL 0 [facility] (18395) serum or plasma sodium measurement (mole s/volume) on 2019-12-03 Sodium [Moles/Vol] 136 136-146 mmol/L 12-03-2019 [facility] (48074) serum or plasma potassium measurement (m oles/volume) on 2019-12-03 Potassium [Moles/Vol] 3.9 3.5-5.1 mmol/L 12-03-19 [facility] (66498) serum or plasma non-glucuronidated bilir ubin measurement (mass/volume) on 2019-12-03 Bilirubin.indirect [Mass/Vol] 0.2 mg/dL 12-03-2019 [facility] (80182) serum or plasma glucose measurement (mas s/volume) on 2019-12-03 Glucose [Mass/Vol] 111 70-100 mg/dL 12-03-2019 [facility] (54097) Comment: ADA recommended reference ra ngeRandom Glucose Reference Range is dependent on time and content of last meal. Glucose of more than 200 mg/dL in a nonstressed, ambulatory subj ect supports the diagnosis of Diabetes Mellitus. serum or plasma creatinine measurement w ith calculation of estimated glomerular filtr on 2019-12-03 Creatinine [Mass/Vol] 0.98 0.64-1.27 mg/dL 12-03-19 [facility] (63531 ) serum or plasma chloride measurement (mo les/volume) on 2019-12-03 Chloride [Moles/Vol] 103 95-114 mmol/L 0 [facility] (05934) serum or plasma calcium measurement (mas s/volume) on 2019-12-03 Calcium [Mass/Vol] 10.0 8.2-10.2 mg/dL 12-03-2019 [facility] (14844) serum or plasma aspartate aminotransfera se measurement (enzymatic activity/volume) on 2019-12-03 AST [Catalytic activity/Vol] 31 10-42 U/L 0 12-03-2019 [facility] (04552) serum or plasma amylase measurement (enz ymatic activity/volume) on 2019-12-03 Amylase [Catalytic 32 28-100 U/L 12-03-2019 [facility] activity/Vol] Ctr (0 0000) serum or plasma alkaline phosphatase janice surement (enzymatic activity/volume) on 2019-12-03 ALP [Catalytic activity/Vol] 100 32-92 U/L 0 12-03-2019 [facility] (37818 ) serum or plasma albumin/globulin mass ra romeo on 2019-12-03 Albumin/Globulin [Mass ratio] 1.1 {ratio} 12-03-2019 [facility] (30606 ) serum or plasma alanine aminotransferase measurement without p-5'-p (enzymatic activi on 2019-12-03 ALT No additional P-5'-P 51 10-60 U/L 12-02 [facility] [Catalytic activity/Vol] Ctr (46831) serum globulin measurement by calculatio n (mass/volume) on 2019-12-03 Globulin (S) [Mass/Vol] 3.3 g/dL 2019 [facility] (30668) protein [mass/volume] in serum or plasma on 2019-12-03 Protein [Mass/Vol] 6.9 6.1-7.9 g/dL 12-03-2019 [facility] (44365) lipase on 7 Lipase [Catalytic 28.0 22-51 U/L Normal 12-03-2019 [facility] activity/Vol] [facility] (14947) Comment: Result Comment: PERFORMED BY : [facility] [address] [place] [address] PATHOLOGIST [employer] GENER[employer] MANAGER LELA NIXON M.D. Performed By: #### LIPASE, A MY, BMP, HEPATIC, CBC #### [facility] [address] hepatic panel on 15-12-06 Albumin [Mass/Vol] 3.6 3.2-5.5 g/dL Normal 12-03-2019 [facility] (00 000) Comment: Performed By: #### LIPASE, A MY, BMP, HEPATIC, CBC #### [facility] [address] Albumin/Globulin [Mass ratio] 1.1 {ratio} Normal 12-03-2019 [facility] nter (35111) Comment: Performed By: #### LIPASE, A MY, BMP, HEPATIC, CBC #### [facility] [address] ALP [Catalytic activity/Vol] 100 32-92 U/L High 0 12-03-2019 [facility] (00 000) Comment: Performed By: #### LIPASE, A MY, BMP, HEPATIC, CBC #### [facility] [address] [place] [address] ALT [Catalytic activity/Vol] 51 10-60 U/L Normal 0 12-03-2019 [facility] (39151) Comment: Performed By: #### LIPASE, A MY, BMP, HEPATIC, CBC #### [facility] [address] [place] [address] AST [Catalytic activity/Vol] 31 10-42 U/L Normal 0 12-03-2019 [facility] nt (26977) Comment: Performed By: #### LIPASE, A MY, BMP, HEPATIC, CBC #### [facility] [address] [place] [address] Bilirubin [Mass/Vol] 0.3 0.3-1.2 mg/dL Normal 0 [facility] (00 000) Comment: Performed By: #### LIPASE, A MY, BMP, HEPATIC, CBC #### [facility] [address] [place] [address] Bilirubin,Indirect 0.2 mg/dL Normal 12-03-2019 [facility] (04675) Comment: Performed By: #### LIPASE, A MY, BMP, HEPATIC, CBC #### [facility] [address] [place] [address] Bilirubin.direct [Mass/Vol] 0.1 0.0-0.4 mg/dL Normal [facility] nt (73042) Comment: Performed By: #### LIPASE, A MY, BMP, HEPATIC, CBC #### [facility] [address] [place] [address] Globulin (S) [Mass/Vol] 3.3 g/dL Normal 2019 [facility] (00 000) Comment: Performed By: #### LIPASE, A MY, BMP, HEPATIC, CBC #### [facility] [address] [place] [address] Protein [Mass/Vol] 6.9 6.1-7.9 g/dL Normal 12-03-2019 [facility] (00 000) Comment: Performed By: #### LIPASE, A MY, BMP, HEPATIC, CBC #### [facility] [address] hematocrit [volume fraction] of blood by automated count on 2019-12-03 Hematocrit (Bld) [Volume 46.6 38.8-50.0 % 12-02 [facility] fraction] Ctr (25622 ) estimated glomerular filtration rate (gf r) non- on 2019-12-03 GFR/1.73 sq M predicted > 60 mL/min/{1.73_m2} 12-03-2019 [facility] among non-blacks MDRD [facility] (41040) (S/P/Bld) [Vol rate/Area] direct bilirubin measurement on 2019-12-03 Bilirubin.direct [Mass/Vol] 0.1 0.0-0.4 mg/dL [facility] (05435 ) complete blood count auto diff on 2019-12-03 Basophils (Bld) [#/Vol] 0.1 0.0-0.2 10*3/uL Normal 2019 [facility] nter (62573) Comment: Result Comment: PERFORMED BY : [facility] [address] [place] [address] PATHOLOGIST [employer] GENER[employer] MANAGER LELA NIXON M.D. Performed By: #### LIPASE, A MY, BMP, HEPATIC, CBC #### [facility] [address] Basophils/100 WBC (Bld) 0.6 . % Normal 2019 [facility] (44641) Comment: Performed By: #### LIPASE, A MY, BMP, HEPATIC, CBC #### [facility] [address] Eosinophils (Bld) [#/Vol] 0.6 0.0-0.45 10*3/uL High [facility] nter (24683) Comment: Performed By: #### LIPASE, A MY, BMP, HEPATIC, CBC #### [facility] [address] [place] [address] Eosinophils/100 WBC (Bld) 4.5 . % Normal [facility] (84191) Comment: Performed By: #### LIPASE, A MY, BMP, HEPATIC, CBC #### [facility] [address] [place] [address] Erythrocyte distribution 14.5 12.0-14.8 % Normal 12-02 [facility] width (RBC) [Ratio] Medical [place] (05367) Comment: Performed By: #### LIPASE, A MY, BMP, HEPATIC, CBC #### [facility] [address] [place] [address] Hematocrit (Bld) [Volume 46.6 38.8-50.0 % Normal 12-02 [facility] fraction] Medical Ce nt (44715) Comment: Performed By: #### LIPASE, A MY, BMP, HEPATIC, CBC #### [facility] [address] [place] [address] Hemoglobin (Bld) 15.8 13.0-17.0 g/dL Normal 12-03-2019 [facility] [Mass/Vol] Medical C enter (77709) Comment: Performed By: #### LIPASE, A MY, BMP, HEPATIC, CBC #### [facility] [address] [place] [address] Lymphocytes (Bld) 4.0 1.00-4.8 10*3/uL Normal 12-03-2019 [facility] [#/Vol] Medical Ce nt (98722) Comment: Performed By: #### LIPASE, A MY, BMP, HEPATIC, CBC #### [facility] [address] [place] [address] Lymphocytes/100 WBC (Bld) 29.4 . % Normal [facility] (00 000) Comment: Performed By: #### LIPASE, A MY, BMP, HEPATIC, CBC #### [facility] [address] [place] [address] MCH (RBC) [Entitic 34.0 32.5-35.6 g/dL Normal 12-03-2019 [facility] nt (63686) Comment: Performed By: #### LIPASE, A MY, BMP, HEPATIC, CBC #### [facility] [address] [place] [address] MCH (RBC) [Entitic mass] 29.7 27.5-35.2 pg Normal 12-02 [facility] nt (31733) Comment: Performed By: #### LIPASE, A MY, BMP, HEPATIC, CBC #### [facility] [address] [place] [address] MCV (RBC) [Entitic vol] 87.4 83.5-101 fL Normal 2019 [facility] (00 000) Comment: Performed By: #### LIPASE, A MY, BMP, HEPATIC, CBC #### [facility] [address] [place] [address] Monocytes (Bld) [#/Vol] 1.1 0.0-0.8 10*3/uL High 2019 [facility] nt (25095) Comment: Performed By: #### LIPASE, A MY, BMP, HEPATIC, CBC #### [facility] tr [address] [place] [address] [place] Monocytes/100 WBC (Bld) 7.8 . % Normal 2019 [facility] (19631) Comment: Performed By: #### LIPASE, A MY, BMP, HEPATIC, CBC #### [facility] [address] [place] [address] Neutrophils (Bld) [#/Vol] 7.8 1.8-7.7 10*3/uL High 070 [facility] nt (81812) Comment: Performed By: #### LIPASE, A MY, BMP, HEPATIC, CBC #### [facility] [address] [place] [address] Neutrophils/100 WBC (Bld) 57.7 . % Normal 070 [facility] (00 000) Comment: Performed By: #### LIPASE, A MY, BMP, HEPATIC, CBC #### [facility] [address] Nucleated RBC/100 WBC (Bld) 0.0 0-0.5 % Normal [facility] [Ratio] Center (00 000) Comment: Performed By: #### LIPASE, A MY, BMP, HEPATIC, CBC #### [facility] tr [address] [place] [address] Platelet mean volume 8.7 6.6-10.1 fL Normal 0 [facility] (Bld) [Entitic vol] Center (45484) Comment: Performed By: #### LIPASE, A MY, BMP, HEPATIC, CBC #### [facility] [address] [place] [address] Platelets (Bld) [#/Vol] 249 150-450 10*3/uL Normal 2019 [facility] nter (88058) Comment: Performed By: #### LIPASE, A MY, BMP, HEPATIC, CBC #### [facility] [address] [place] [address] RBC (Bld) [#/Vol] 5.33 3.90-5.60 10*6/uL Normal 12-03-2019 [facility] (00 000) Comment: Performed By: #### LIPASE, A MY, BMP, HEPATIC, CBC #### [facility] [address] [place] [address] WBC (Bld) [#/Vol] 13.6 10*3/uL High 12-03-2019 [facility] (39385) Comment: Performed By: #### LIPASE, A MY, BMP, HEPATIC, CBC #### [facility] [address] [place] [address] body fluid albumin measurement (mass/vol ume) on 2019-12-03 Albumin (Body fld) 3.6 3.2-5.5 g/dL 12-03-2019 [facility] [Mass/Vol] Ctr (0000 0) blood neutrophil count by automated meth od (number/volume) on 2019-12-03 Neutrophils (Bld) [#/Vol] 7.8 1.8-7.7 10*3/uL 07- [facility] (90530 ) blood leukocytes automated count (number /volume) on 2019-12-03 WBC (Bld) [#/Vol] 13.6 10*3/uL 12-03-2019 F [facility] (40859) blood hemoglobin measurement (mass/volum e) on 2019-12-03 Hemoglobin (Bld) [Mass/Vol] 15.8 13.0-17.0 g/dL [facility] r (08745) blood erythrocytes automated count (numb er/volume) on 2019-12-03 RBC (Bld) [#/Vol] 5.33 3.90-5.60 10*6/uL 12-03-2019 [facility] (05077) basic metabolic panel on 2019-12-03 Calcium [Mass/Vol] 10.0 8.2-10.2 mg/dL Normal 12-03-2019 [facility] ( 000) Comment: Performed By: #### LIPASE, A MY, BMP, HEPATIC, CBC #### [facility] tr [address] [place] [address] [place] Chloride [Moles/Vol] 103 95-114 mmol/L Normal 0 [facility] (00 000) Comment: Performed By: #### LIPASE, A MY, BMP, HEPATIC, CBC #### [facility] tr [address] [place] [address] [place] CO2 [Moles/Vol] 23.7 22.0-30.0 mmol/L Normal 12-03-2019 [facility] ( 000) Comment: Performed By: #### LIPASE, A MY, BMP, HEPATIC, CBC #### [facility] tr [address] [place] [address] [place] Creatinine [Mass/Vol] 122.4324405174 Normal [facility] (00 000) Comment: Performed By: #### LIPASE, A MY, BMP, HEPATIC, CBC #### [facility] tr [address] [place] [id number] [place] Creatinine [Mass/Vol] 0.98 0.64-1.27 mg/dL Normal 12-03-19 20 [facility] (46536) Comment: Performed By: #### LIPASE, A MY, BMP, HEPATIC, CBC #### [facility] tr [address] [place] [id number] [place] Estimated GFR ( > 60 Normal 020 [facility] (00 000) Comment: Result Comment: GFR estimate d reference range: According to KDOQI guidelines, <60 ml/min/1.73m 2 is sufficient to diagnose a patient with chronic kidney disease. Performed By: #### LIPASE, A MY, BMP, HEPATIC, CBC #### [facility] [address] [place] [address] [place] Estimated GFR (Non- Am > 60 Normal 12-03-2019 [facility] (00 000) Comment: Performed By: #### LIPASE, A MY, BMP, HEPATIC, CBC #### [facility] [address] [place] [id number] [facility] Glucose [Mass/Vol] 111 70-100 mg/dL High 12-03-2019 [facility] (03164) Comment: Result Comment: Random Gluco se Reference Range is dependent on time and content of last meal. Glucos e of more than 200 mg/dL in a nonstressed, ambulatory subj ect supports the diagnosis of Diabetes Mellitus. ADA recommended reference ra nge Performed By: #### LIPASE, A MY, BMP, HEPATIC, CBC #### [facility] [address] [place] [id number] [facility] Potassium [Moles/Vol] 3.9 3.5-5.1 mmol/L Normal 12-03-19 20 [facility] (00 000) Comment: Performed By: #### LIPASE, A MY, BMP, HEPATIC, CBC #### [facility] [address] [place] [id number] [place] Sodium [Moles/Vol] 136 136-146 mmol/L Normal 12-03-2019 [facility] (00 000) Comment: Performed By: #### LIPASE, A MY, BMP, HEPATIC, CBC #### [facility] tr [address] [place] [id number] [place] Urea nitrogen [Mass/Vol] 14 9-23 mg/dL Normal 12-02 [facility] (00 000) Comment: Performed By: #### LIPASE, A MY, BMP, HEPATIC, CBC #### [facility] [address] [place] [address] automated urine color determination on 2019-12-03 Color (U) Yellow Yellow 12-03-2019 [facility] (45043) automated neutrophil % on 2019-12-03 Neutrophils/100 WBC (Bld) 57.7 % [facility] (66738) automated monocyte % on 2019-12-03 Monocytes/100 WBC (Bld) 7.8 % 2019 [facility] (16110) automated leukocytes count in urine sedi ment (number/area) on 2019-12-03 WBC Auto (Urine sed) 10-19 [HPF] 020 [facility] [#/Area] Ctr (10811 ) automated erythrocytes count in urine se diment (number/area) on 2019-12-03 RBC Auto (Urine sed) [#/Area] 0-1 [HPF] 12-03-2019 [facility] (64409 ) automated erythrocyte mean corpuscular v olume on 2019-12-03 MCV (RBC) [Entitic vol] 87.4 83.5-101 fL 2019 [facility] (84462) automated erythrocyte mean corpuscular h emoglobin concentration measurement (mass/vol on 2019-12-03 MCHC (RBC) [Mass/Vol] 34.0 32.5-35.6 g/dL 12-03-19 20 [facility] (84219) automated erythrocyte mean corpuscular h emoglobin (mass per erythrocyte) on 2019-12-03 MCH (RBC) [Entitic mass] 29.7 27.5-35.2 pg 12-02 [facility] (58458 ) automated erythrocyte distribution width ratio on 2019-12-03 Erythrocyte distribution 14.5 12.0-14.8 % 12-02 [facility] width (RBC) [Ratio] Ctr (04279) automated eosinophil count on 2019-12-03 Eosinophils (Bld) [#/Vol] 0.6 0.0-0.45 10*3/uL 07- [facility] r (81330) automated eosinophil % on 2019-12-03 Eosinophils/100 WBC (Bld) 4.5 % [facility] (52437) automated blood platelet mean volume janice surement on 2019-12-03 Platelet mean volume (Bld) 8.7 6.6-10.1 fL [facility] [Entitic vol] Ctr (0 0000) automated blood platelet count (count/vo lume) on 2019-12-03 Platelets (Bld) [#/Vol] 249 150-450 10*3/uL 2019 [facility] (36745 ) automated blood monocyte count on 2019-12-03 Monocytes (Bld) [#/Vol] 1.1 0.0-0.8 10*3/uL 2019 [facility] (55942 ) automated blood lymphocyte count as perc entage of total leukocytes on 2019-12-03 Lymphocytes/100 WBC (Bld) 29.4 % [facility] (82828) automated blood lymphocyte count (number /volume) on 2019-12-03 Lymphocytes (Bld) [#/Vol] 4.0 1.00-4.8 10*3/uL - [facility] r (32611) automated basophil count on 2019-12-03 Basophils (Bld) [#/Vol] 0.1 0.0-0.2 10*3/uL 2019 [facility] (58352 ) automated basophil % on 2019-12-03 Basophils/100 WBC (Bld) 0.6 % 2019 [facility] (54895) amylase on Amylase [Catalytic 32 28-100 U/L Normal 12-03-2019 [facility] activity/Vol] Medica l Center (80768) Comment: Performed By: #### LIPASE, A MY, BMP, HEPATIC, CBC #### [facility] tr [address] [place] [address] No panel information on 2019-12-03 Hyaline casts LM Ql 0-8 [LPF] 12-03-2019 [facility] (Urine sed) Medical Ctr (64755) GFR/1.73 sq > 60 mL/min/{1.73_m2 12-03-2019 [facility] M.predicted MDRD } Med ical Ctr (27108) (S/P/Bld) [Vol rate/Area] Comment: GFR estimated reference rang e: According to KDOQI guidelines, <60 ml/min/1.73m2 is sufficient to diagnose a patient with chronic kidney disease. Lipase [Catalytic 28.0 22-51 U/L 12-03-2019 [facility] activity/Vol] Medica l Ctr (35026) Nucleated RBC/100 WBC 0.0 0-0.5 % 12-03-19 20 [facility] (Bld) [Ratio] Medica l Ctr (54401) Pharmacy Creatinine [id number] 12-02 [facility] Clearance (Chem Medi elva Ctr (73974) xr chest 2 views on 2019-11-06 XR CHEST 2 VIEWS ORIGINAL Normal 11-06-2019 [facility] XR XR CHEST 2 VIEWS, [facility] [place] ([place]) (79167) Clinical Statement: Chest Pain, Comparison: 01/14/2014 Findings: No consolidation, pneumothor ax, pleural fluid, or vascular congestion is seen. Heart size and mediastinal contours are within normal limits for age and projection. No acute skeletal abnormality. IMPRESSION: No acute cardiopulmonary process. Interpreted By: Dhaval Rose MD Preliminary Report By: Dhaval Rose MD Electronically Signed By: Dhaval Rose MD Dictated Date: 11/06/2019 2:09:51 PM Prelim Date: 11/06/2019 2:09:51 PM Sign Date: 11/06/2019 2:11:02 PM Ordering Provider:Rao bowen on 2019-11-06 Troponin I.cardiac <0.020 0.000-0.040 ng/mL Normal 0 [facility] [Mass/Vol] [place] ([place]) (43006) Comment: Result Comment: Troponin I r eference range: 0.00-0.040 ng/mL Negative an d non-diagnostic. >0.040 ng/mL Consistent with cardiac damage, increased clinical risk and possibility of myocardial in farction. Serial measurements, a rise & fall in test results, clinical histo ry, appropriate symptoms and/or ECG changes may help assess possibility of [place]. *Other non-acute coronary sy ndrome conditions such as CHF, myoc arditis, pulmonary emboli, sepsis and cardiac surgery could result in myoc ardial damage and increased troponi n levels. Performed By: #### CBC, ADIF F, ANEU, GFR, DIMER #### [address] [address] #### BMP, TROP #### [address] [address] dimer on 2019-11-06 Fibrin D-dimer FEU IA <200 0-230 ug/mL Normal 11-06-19 20 [facility] (Bld) [Mass/Vol] ([place] ) (04790) Comment: Result Comment: The result o f the D-Dimer test should be evaluated in the context of all the clinical and laboratory data available. In those instances where the laboratory result does not agree with the clinical eval uation, additional tests should be performed accordingly. If the D-Dimer result is use d to exclude DVT or PE, the recommended cutoff value is less than 230 ng/mL. The D-Dimer result should not be used al one to rule in DVT/PE, but should be used in conjunction with a clinical pretest probability (PTP)assessment model to exc lude venous thromboembolism (VTE) in outpatients suspected of deep venous thrombosis (DVT) and pulmonary embolism (PE). Performed By: #### CBC, ADIF F, ANEU, GFR, DIMER #### [address] [address] #### BMP, TROP #### [address] [address] cbc on 2019-11-06 Erythrocyte distribution 14.7 11.5-14.5 % High 11-05 [facility] width (RBC) [Ratio] ([place]) (98397) Comment: Performed By: #### CBC, ADIF F, ANEU, GFR, DIMER #### [address] [address] #### BMP, TROP #### [address] [address] Hematocrit (Bld) [Volume 45.1 42.0-52.0 % Normal 11-05 [facility] fraction] ([place]) (0000 0) Comment: Performed By: #### CBC, ADIF F, ANEU, GFR, DIMER #### [address] [address] #### BMP, TROP #### [address] [address] Hemoglobin (Bld) 15.5 14.0-18.0 G/dL Normal 11-06-2019 [facility] [Mass/Vol] [place] ([place]) (09857) Comment: Performed By: #### CBC, ADIF F, ANEU, GFR, DIMER #### [place] [address] #### BMP, TROP #### [address] [address] MCH (RBC) [Entitic mass] 30.0 27.0-31.2 pg Normal 11-05 [facility] ([place]) (0000 0) Comment: Performed By: #### CBC, ADIF F, ANEU, GFR, DIMER #### [place] [address] #### BMP, TROP #### [address] [address] MCHC (RBC) [Mass/Vol] 34.4 31.8-35.4 G/dL Normal 11-06-19 [facility] ([place]) (0000 0) Comment: Performed By: #### CBC, ADIF F, ANEU, GFR, DIMER #### [place] [address] #### BMP, TROP #### [address] [address] MCV (RBC) [Entitic vol] 87.1 80.0-94.0 fL Normal 2019 [facility] ([place]) (0000 0) Comment: Performed By: #### CBC, ADIF F, ANEU, GFR, DIMER #### [place] [address] #### BMP, TROP #### [address] [address] Platelet mean volume 8.6 7.4-10.4 fL Normal 0 [facility] (d) [Entitic vol] ([place]) (90171) Comment: Performed By: #### CBC, ADIF F, ANEU, GFR, DIMER #### [address] [address] #### BMP, TROP #### [address] [address] Platelets (Bld) [#/Vol] 243 130-400 10 3/mcL Normal 2019 [facility] ([place]) (74770) Comment: Performed By: #### CBC, ADIF F, ANEU, GFR, DIMER #### [address] [address] #### BMP, TROP #### [address] [address] RBC (Bld) [#/Vol] 5.17 4.04-6.13 10 6/mcL Normal 11-06-2019 [facility] ([place]) (0000 0) Comment: Performed By: #### CBC, ADIF F, ANEU, GFR, DIMER #### [place] [address] #### BMP, TROP #### [address] [address] WBC (Bld) [#/Vol] 13.30 4.60-10.80 10 3/mcL High 11-06-2019 [facility] ([place]) (0000 0) Comment: Performed By: #### CBC, ADIF F, ANEU, GFR, DIMER #### [place] [address] #### BMP, TROP #### [address] [address] bmp on 2019-11-06 Calcium [Mass/Vol] 9.6 8.4-10.2 mg/dL Normal 11-06-2019 [facility] ([place]) (0000 0) Comment: Performed By: #### CBC, ADIF F, ANEU, GFR, DIMER #### [address] [address] #### BMP, TROP #### [address] [address] Chloride [Moles/Vol] 103 98-107 mmol/L Normal 0 [facility] ([place]) (0000 0) Comment: Performed By: #### CBC, ADIF F, ANEU, GFR, DIMER #### [place] [address] #### BMP, TROP #### [address] [address] CO2 [Moles/Vol] 28 22-29 mmol/L Normal 11-06-2019 [facility] ([place]) (95108) Comment: Performed By: #### CBC, ADIF F, ANEU, GFR, DIMER #### [place] [address] #### BMP, TROP #### [address] [address] Creatinine [Mass/Vol] 1.20 0.70-1.30 mg/dL Normal 11-06-19 20 [facility] ([place]) (81550) Comment: Performed By: #### CBC, ADIF F, ANEU, GFR, DIMER #### [place] [address] #### BMP, TROP #### [address] [address] Electrolyte Balance 8.0 mEq/L Normal 11-06-2019 [facility] ([place]) (34228) Comment: Performed By: #### CBC, ADIF F, ANEU, GFR, DIMER #### [place] [address] #### BMP, TROP #### [address] [address] Glucose [Mass/Vol] 94 70-105 mg/dL Normal 11-06-2019 [facility] ([place] (59283) Comment: Performed By: #### CBC, ADIF F, ANEU, GFR, DIMER #### [address] [address] #### BMP, TROP #### [address] [address] Potassium [Moles/Vol] 4.6 3.5-5.1 mmol/L Normal 11-06-19 [facility] ([place]) (0000 0) Comment: Performed By: #### CBC, ADIF F, ANEU, GFR, DIMER #### [address] [address] #### BMP, TROP #### [address] [address] Sodium [Moles/Vol] 139 136-145 mmol/L Normal 11-06-2019 [facility] ([place]) (0000 0) Comment: Performed By: #### CBC, ADIF F, ANEU, GFR, DIMER #### [address] [address] #### BMP, TROP #### [address] [address] Urea nitrogen [Mass/Vol] 19 7-18 mg/dL High 11-05 [facility] ([place]) ([id number]) Comment: Performed By: #### CBC, ADIF F, ANEU, GFR, DIMER #### [address] [address] #### BMP, TROP #### [address] [address] Urea nitrogen/Creatinine [Mass 16 7-27 ratio Normal 11-06-2019 [facility]] [facility] [place] ([place] ([address]74) Comment: Performed By: #### CBC, ADIF F, ANEU, GFR, DIMER #### [address] [address] #### BMP, TROP #### [address] [address] .neuabs on Neutrophils (Bld) 7.50 2.85-6.16 10 3/mcL High 11-06-2019 [facility] [#/[facility] ([place]) ([address]) Comment: Performed By: #### CBC, ADIF F, ANEU, GFR, DIMER #### [address] [address] #### BMP, TROP #### [address] [address] .gfr on 2019-11-06 GFR Non- 67 ml/min/1.73sqm Normal 11-06-2019 [facility] ([place] ([address]) Comment: Result Comment: GFR Population mean for Afri can Cuban, Non- Americans Ages 20-29 = 116 mL/min/1.73 sq.m. Ages 30-39 = 107 mL/min/1.73 sq.m. Ages 40-49 = 99 mL/min/1.73 sq.m. Ages 50-59 = 93 mL/min/1.73 sq.m. Ages 60-69 = 85 mL/min/1.73 sq.m. Ages 70+ = 75 mL/min/1.73 sq .m. Chronic Kidney Disease: Less than 60 mL/min/1.73 square meters End Stage Renal Disease: Les s than 15 mL/min/1.73 square meters Performed By: #### CBC, ADIF F, ANEU, GFR, DIMER #### [address] [address] #### BMP, TROP #### [place] [address] GFR 81 ml/min/1.73sqm Normal 10-27 [facility] ([place]) (0000 0) Comment: Result Comment: GFR Population mean for Afri can Cuban, Non- Americans Ages 20-29 = 116 mL/min/1.73 sq.m. Ages 30-39 = 107 mL/min/1.73 sq.m. Ages 40-49 = 99 mL/min/1.73 sq.m. Ages 50-59 = 93 mL/min/1.73 sq.m. Ages 60-69 = 85 mL/min/1.73 sq.m. Ages 70+ = 75 mL/min/1.73 sq .m. Chronic Kidney Disease: Less than 60 mL/min/1.73 square meters End Stage Renal Disease: Les s than 15 mL/min/1.73 square meters Performed By: #### CBC, ADIF F, ANEU, GFR, DIMER #### [address] [address] #### BMP, TROP #### [address] [address] .auto diff on 11-05 Ammonia (P) [Mass/Vol] 1.10 0.15-1.00 10 3/mcL High 11-05- 020 [facility] ([place] ([id number]) Comment: Performed By: #### CBC, ADIF F, ANEU, GFR, DIMER #### [place] [address] #### BMP, TROP #### [address] [address] Basophils (Bld) 0.10 0.00-0.19 10 3/mcL Normal 11-06-2019 [facility] [#/Vol] [facility] [place] ([place]) ([address]) Comment: Performed By: #### CBC, ADIF F, ANEU, GFR, DIMER #### [place] [address] #### BMP, TROP #### [address] [address] Basophils/100 WBC (Bld) 0.9 0.0-2.5 % Normal 2019 [facility] ([place] (0000 0) Comment: Performed By: #### CBC, ADIF F, ANEU, GFR, DIMER #### [address] [address] #### BMP, TROP #### [address] [address] Eosinophils (Bld) 0.40 0.00-0.40 10 3/[facility] Normal 11-06-2019 [facility] [#/Vol] [facility] [place] ([place]) ([address]) Comment: Performed By: #### CBC, ADIF F, ANEU, GFR, DIMER #### [place] [address]17 #### BMP, TROP #### [address] [address] Eosinophils/100 WBC (Bld) 3.3 0.0-7.0 % Normal 10-27 [facility] ([place] (0000 0) Comment: Performed By: #### CBC, ADIF F, ANEU, GFR, DIMER #### [place] [address] #### BMP, TROP #### [address] [address] Lymphocytes (Bld) 4.20 0.77-3.85 10 3/mcL High 11-06-2019 [facility] [#/Vol] [facility] [place] ([place]) ([address]) Comment: Performed By: #### CBC, ADIF F, ANEU, GFR, DIMER #### [place] [address] #### BMP, TROP #### [address] [address] Lymphocytes/100 WBC (Bld) 31.4 10.0-50.0 % Normal 10-27 [facility] ([place] ([address]690) Comment: Performed By: #### CBC, ADIF F, ANEU, GFR, DIMER #### [place] [address] #### BMP, TROP #### [address] [address] Monocytes/100 WBC (Bld) 8.6 1.7-13.0 % Normal 2019 [facility] ([place] (0000 0) Comment: Performed By: #### CBC, ADIF F, ANEU, GFR, DIMER #### [place] [address] #### BMP, TROP #### [address] [address] Neutrophils/100 WBC (Bld) 55.8 37.0-80.0 % Normal 10-27 [facility] ([place] ([address]10) Comment: Performed By: #### CBC, ADIF F, ANEU, GFR, DIMER #### [facility] [address], [place] [address] #### BMP, TROP #### [address] [address] xr ribs unilateral on 2017-10-28 XR RIBS UNILATERAL FINAL REPORTEXAM: XR RIBS Rachael l 10-28-2017 [facility] UNILATERALHISTORY: PAIN [facility] TECHNIQUE: PA chest, AP and Center (65268) oblique ribsPRIORS: None.FINDINGS: Lungs are clear. There is no pleural effusion or pneumothorax. No rib fracture is identified.IMPRESSION: Negative for rib fracture.Technologist: MCLDictated By: Sara GIPSON MD By: Sara GIPSON MD Out: 10/28/17 09:57:44 xr chest 1 view on 2017-10-28 XR CHEST 1 VIEW FINAL REPORTEXAM: XR CHEST Normal 10-28-2017 [facility] 1 VIEWHISTORY: COUGH [facility] TECHNIQUE: Lateral view of (14237) the chest PRIORS: None.FINDINGS: Lateral view demonstrates no evidence of lung consolidation, pleural effusion or pneumothorax. IMPRESSION: Negative lateral view. Technologist: MCLDictated By: Sara GIPSON MD By: Sara GIPSON MD Out: 10/28/17 09:56:33 ed progress note on 2017-10-28 ED Progress Note Patient to the ED from [place] 10-28-2017 [facility] with complaint of [facility] left lower chest pain. ([address]) Patient states acute onset of left lower chest pain after sneezing. Patient states that the pain is made worse with movement and deep breathing. Patient states no other complaints. Patient in position of comfort with call light within reach. Will continue to monitor.1012- Patient to be discharged to home with follow-up as per MD order. Instructions given to Patient who verbalizes understanding. Patient discharged from [facility] to home without incident. ed physician report on 2017-10-28 ED Physician Patient: ALO FALK MRN: Normal 10-28-2017 [facility] Report [id number] [place] Age: 37 years Sex: Male : ([id number]) 1980 Associated Diagnoses: Chest pain, musculoskeletal Author: LILY CHING MD Basic Information Time seen: Date & time 10/28/2017 08:44:00. History source: Patient. Arrival mode: Private vehicle. History limitation: None. History of Present Illness The patient presents with chest pain and Patient's Sneezed this morning and developed acute onset of LEFT lower chest pain. He states it hurts when he moves around or if he takes a deep breath. No fevers, chills, nausea, vomiting, diarrhea. He does cough, but that is because he is a heavy smoker. No sputum at this time.. The course/duration of symptoms is constant. Radiating pain: none. The character of symptoms is sharp. The degree at onset was moderate. The degree at maximum was moderate. The degree at present is moderate. There are exacerbating factors including movement, breathing and coughing. The relieving factor is rest. Risk factors consist of smoking and obesity. Prior episodes: none. Therapy today None and Ibuprofen this morning. Associated symptoms: none. Review of Systems Constitutional symptoms: Negative except as documented in HPI, no fever, no chills. Skin symptoms: Negative except as documented in HPI, No rash, Eye symptoms: Negative except as documented in HPI, no pain, no discharge. ENMT symptoms: Negative except as documented in HPI, no ear pain, no sore throat. Respiratory symptoms: Negative except as documented in HPI, no shortness of breath, no cough. Cardiovascular symptoms: Chest pain, no palpitations, no syncope. Gastrointestinal symptoms: Negative except as documented in HPI, no abdominal pain, no nausea, no vomiting. Genitourinary symptoms: Negative except as documented in HPI, No dysuria, Musculoskeletal symptoms: Negative except as documented in HPI, No back pain, Psychiatric symptoms: Negative except as documented in HPI, no anxiety, no depression. Endocrine symptoms: Negative except as documented in HPI, no polyuria, no polydipsia. Hematologic/Lymphatic symptoms: Negative except as documented in HPI, Bruising tendency negative, Allergy/immunologic symptoms: Negative except as documented in HPI. Neurologic symptoms Negative except as documented in HPI, no headache, no dizziness, no altered level of consciousness. Additional review of systems information: All other systems reviewed and otherwise negative. Health Status Allergies: No known allergies. Medications: None. Past Medical/ Family/ Social History Medical history: Negative. Surgical history: Negative. Family history: Not significant. Social history: Alcohol use: Denies, Tobacco use: Regularly, Drug use: Denies, Occupation: Employed, Family/social situation: Unmarried. Physical Examination Vital Signs Time: 10/28/2017 08:55:00. Per nurse's notes. Oxygen saturation. General: Alert, no acute distress. Skin: Warm, dry, no rash. Head: Normocephalic, atraumatic. Neck: Supple, trachea midline. Eye: Pupils are equal, round and reactive to light, extraocular movements are intact. Ears, nose, mouth and throat: Oral mucosa moist. Cardiovascular: Regular rate and rhythm, Normal peripheral perfusion, No edema. Respiratory: Lungs are clear to auscultation, respirations are non-labored, breath sounds are equal. Chest wall: On exam: Left, inferior, tenderness, no ecchymosis. Back: Normal range of motion, Normal alignment. Musculoskeletal: Normal ROM, normal strength, no deformity. Gastrointestinal: Soft, Nontender, Non distended, Normal bowel sounds. Statham coma scale Total score: Total score: 15. Neurological Alert and oriented to person, place, time, and situation, No focal neurological deficit observed, CN II-XII intact, normal sensory observed, normal motor observed, normal speech observed. Medical Decision Making Chest X-Ray: No acute disease process. Radiology results: rib series neg. Impression and Plan Diagnosis Chest pain, musculoskeletal ([id number] R07.89, Working, Medical) Plan Condition: Improved, Stable. Disposition: ED Discharge to Home was placed.(10/28/2017 10:06:45 EDT, Constant Order), Discharged: Time 10/28/2017 10:06:00, to home. Patient was given the following educational materials: Chest Wall Pain. Follow up with: ; SONNY LÓPEZ, Family Practice Within 3 to 5 days. Counseled: Patient, Regarding diagnosis, Regarding diagnostic results, Regarding treatment plan, Regarding prescription, Patient indicated understanding of instructions. Orders: Launch Order Profile (Selected) Inpatient OrdersCanceled (Exam Replaced)CXR PA LAT: CompletedXR CHEST 1 VIEW: XR RIBS UNILATERAL: . Zach CHING MD 10/28/2017 10:07 Vital Signs Vital Sign Description Value / Unit Date Location The following section is limited to 5 en tries per type and includes entries from the following time range: 20191204 - 7. BMI (Body Mass Index) 36 kg/m2 12-03-2019 [facility] ([id number]) Body Temperature 97.3 [degF] 12-03-2019 [facility] [place] [facility] ([id number]) Body weight 110.67 kg 12-03-2019 [facility] ([address]) BP Diastolic 64 mm[Hg] 12-04-2019 [facility] (05967) BP Systolic 111 mm[Hg] 12-04-2019 [facility] (02253) Height 175.26 cm 12-03-2019 [facility] (23[address]) Pulse (Heart Rate) 74 /min 12-04-2019 [facility] ([address]) Pulse Oximetry 99 % 12-04-2019 [facility] (97347) Respiratory Rate 16 /min 12-04-2019 [facility] [place] [facility] (07066) Encounters Date Type Reason Provider Location 12-03-2019 - Emergency department [facility] 12-04-2019 patient visit [facility] 10-28-2017 - Emergency department LILY CHING Fa cility:[id number] 10-28-2017 patient visit [id number] NO [facility] Procedures Procedure Name Date Provider Location Bacteria identified Cx Nom (U) 12-03-2019 [facility] ([id number]) Plan of Treatment Plan Description Date Location Patient Education Abdominal Pain (ED) [facility] ([id number]) Patient referral no information [facility] [place] [facility] ([id number]) Payers Payer Name Policy Number Location Self Pay [facility] ([id number]) The following information is from the original human readable contentNo Payer Records FoundNo Payer Records FoundNo Payer Records FoundNo Payer Records FoundNo Payer Records Found Social History Type Social History Description Date Locat ion Tobacco smoking status Smoker (finding) 12-03-2019 [facility] (000 ) Sex Assigned At Male 1980 [facility] (000 ) The following information is from the original human readable contentNo Social History Records FoundNo Social History Records FoundNo Social History Records FoundNo Social History Records FoundNo Social History Records Found Goals Patient Goal Desired Goal Summary Purpose Family History No Family History Records FoundNo Family History Records FoundNo Family History Records Found Advance Directives No Advanced Directives Records Found Advance Directive Response Recorded Date/Time Advance Directives No December 03, 2019 9:11p m Chief Complaint and Reason for Visit Chief Complaint HEADACHE Assessments No Assessments Information Available Additional Source Comments FOR RECORDS PERTAINING TO PATIENTS WHO ARE OR HAVE BEEN ENROLLED IN A CHEMICAL DEPENDENCY/SUBSTANCE ABUSE PROGRAM, SOME INFORMATION MAY BE OMITTED. This clinical summary was aggregated from multiple sources. Caution should be exercised in using it in the provision of clinical care. This summary normalizes information from multiple sources, and as a consequence, information in this document may materially changethe coding, format and clinical context of patient data. In addition, data may be omittedin some cases. CLINICAL DECISIONS SHOULD BE BASED ON THE PRIMARY CLINICAL RECORDS. [employer] [facility] provides no warranty or guarantee of the accuracy or completeness of information in this document. UNRECOGNIZED CONTENT PROVIDED BELOW FOR UNRECOGNIZED SECTION No Status Records FoundNo Status Records FoundNo Status Records Found UNRECOGNIZED CONTENT PROVIDED BELOW FOR UNRECOGNIZED SECTION INFORMATION SOURCE DATE CREATED AUTHOR AUTHOR'S ORGANIZATIO N 11/30/2017 [facility] DATE CREATED AUTHOR AUTHOR'S ORGANIZATIO N 02/05/2020 [facility] ([place]) DATE CREATED AUTHOR AUTHOR'S ORGANIZATIO N 03/05/2020 [facility]
--- OUTSIDE RECORDS SUMMARY | 2020-03-15 11:52 | XMS RPT_ITS | CCD ---
:1980 External Reference #:[id number] Author Organization [employer] Care Team Providers Name Role Phone LILY CHING Unavailable Unavailable NO FAMILY PHYSICIAN, 837 Unavailable Unavailable NO FAMILY, PHYSICIAN Primary Care Provider Unavailable Allergies Reported Allergen Reaction(s) Severity Date of Onset Location Doxycycline Redness of Skin 12-03-2019 [facility] ([id number]) Medications Medication Name Sig Date Prescriber Location Ondansetron Ondansetron Active 4 MG 12-04-2019 [facility] Oral every 6 to 8 hours [facility] ([id number]) December 04, 2019 2:05am pantoprazole Pantoprazole Active 20 MG 12-04-2019 [facility] Oral Daily December 03, [facility] (10665) 2019 2:05am Problems Category Problem Name Status Date Location Abdominal pain Abdominal pain Active [facility] ([id number]) Results Result Name Value Range Unit Interpretation Flag Date Location xr chest 1 view on 2020-02-05 XR CHEST 1 VIEW ORIGINAL Normal 02-05-2020 [facility] XR CHEST 1 VIEW PORTABLE AP [facility] ([place]) ([address]270) TIME: 10:08 PM CLINICAL STATEMENT: chest pain [...] Troponin I.cardiac <0.020 0.000-0.040 ng/mL Normal 0 [facility]Vol[facility] ([address]155[facility] Comment: Result Comment: Troponin I r eference range: 0.00-0.040 ng/mL Negative an d non-diagnostic. >0.040 ng/mL Consistent with cardiac damage, increased clinical risk and possibility of myocardial in farction. Serial measurements, a rise & fall in test results, clinical histo ry, appropriate symptoms and/or ECG changes may help assess possibility of [place]. *Other non-acute coronary sy ndrome conditions such as CHF, myoc arditis, pulmonary emboli, sepsis and cardiac surgery could result in myoc ardial damage and increased troponi n levels. Performed By: #### CBC, ADIF F, ANEU, GFR, DIMER #### [address] [address] #### BMP, TROP #### [address] [address] lip on 2020-02-05 Lipase Level 68 73-393 U/L Low 02-05-2020 [facility] ([place]) (35708) Comment: Performed By: #### CBC, ADIF F, ANEU, GFR, DIMER #### [address] [address] #### BMP, TROP #### [address] [address] covd19 on 9 COVID-19 Int Normal 02-05-2020 [facility] ([place]) (54048) Comment: Result Comment: Negative res ults do [...] CBC, ADIF F, ANEU, GFR, DIMER #### [place] [address] #### BMP, TROP #### [place] [address] COVID-19 Result Negative Negative Normal 02-05-2020 [facility] ([place]) (33252) Comment: Performed By: #### CBC, ADIF F, ANEU, GFR, DIMER #### [place] [address] #### BMP, TROP #### [place] [address] Date of Onset 2020020202-05-2020 [facility] ([place]) (10688) Comment: Performed By: #### CBC, ADIF F, ANEU, GFR, DIMER #### [place] [address] #### BMP, TROP #### [place] [address] Employed in Healthcare No Normal 020 [facility] ([place]) (24412) Comment: Performed By: #### CBC, ADIF F, ANEU, GFR, DIMER #### [place] [address] #### BMP, TROP #### [place] [address] First Test Yes Normal 02-05-2020 [facility] ([place]) (25978) Comment: Performed By: #### CBC, ADIF F, ANEU, GFR, DIMER #### [address] [address] #### BMP, TROP #### [place] [address] Hospitalized No Normal 02-05-2020 [facility] ([place] (29781) Comment: Performed By: #### CBC, ADIF F, ANEU, GFR, DIMER #### [place] [address] #### BMP, TROP #### [place] [address] ICU No Normal 02-05-2020 [facility] ([place] (00374) Comment: Performed By: #### CBC, ADIF F, ANEU, GFR, DIMER #### [place] [address] #### BMP, TROP #### [place] [address] Not Normal 02-05-2020 [facility] ([place] (05071) Comment: Performed By: #### CBC, ADIF F, ANEU, GFR, DIMER #### [place] [address] #### BMP, TROP #### [place] [address] Resides in Congregate Care No Normal [facility] ([place]) Setting (63478) Comment: Performed By: #### CBC, ADIF F, ANEU, GFR, DIMER #### [place] [address] #### BMP, TROP #### [place] [address] Symptomatic as Defined by CDC Yes Normal 02-05-2020 [facility] ([place]) (0000 0) Comment: Performed By: #### CBC, ADIF F, ANEU, GFR, DIMER #### [place] [address] #### BMP, TROP #### [place] [address] cmp on 2020-02-05 Albumin [Mass/Vol] 3.7 3.5-5.0 G/dL Normal 02-05-2020 [facility] ([place]) (80506) Comment: Performed By: #### CBC, ADIF F, ANEU, GFR, DIMER #### [place] [address] #### BMP, TROP #### [place] [address] Albumin/Globulin [Mass ratio] 1.0 1.1-2.5 ratio Low 02-05-2020 [facility] ([place] (24751) Comment: Performed By: #### CBC, ADIF F, ANEU, GFR, DIMER #### [place] [address] #### BMP, TROP #### [place] [address] ALP [Catalytic activity/Vol] 124 40-135 U/L Normal 0 02-05-2020 [facility] ([place] (39770) Comment: Performed By: #### CBC, ADIF F, ANEU, GFR, DIMER #### [place] [address] #### BMP, TROP #### [place] [address] ALT [Catalytic activity/Vol] 51 10-35 U/L High 0 02-05-2020 [facility] ([place]) (0000 0) Comment: Performed By: #### CBC, ADIF F, ANEU, GFR, DIMER #### [place] [address] #### BMP, TROP #### [place] [id number] AST [Catalytic activity/Vol] 27 10-40 U/L Normal 0 02-05-2020 [facility] ([place]) (0000 0) Comment: Performed By: #### CBC, ADIF F, ANEU, GFR, DIMER #### [place] [address] #### BMP, TROP #### [address] [address] Bili Total 0.3 0.2-1.0 mg/dL Normal 02-05-2020 [facility] ([place]) (99436) Comment: Result Comment: Use of this assay is not recommended for patients undergoing treatment with eltrombopag d ue to the potential for falsely elevated results. Performed By: #### CBC, ADIF F, ANEU, GFR, DIMER #### [place] [address] #### BMP, TROP #### [address] [address] Calcium [Mass/Vol] 9.0 8.4-10.2 mg/dL Normal 02-05-2020 [facility] ([place]) (0000 0) Comment: Performed By: #### CBC, ADIF F, ANEU, GFR, DIMER #### [place] [address] #### BMP, TROP #### [place] [address] Chloride [Moles/Vol] 103 98-107 mmol/L Normal 0 [facility] ([place]) (0000 0) Comment: Performed By: #### CBC, ADIF F, ANEU, GFR, DIMER #### [address] [address] #### BMP, TROP #### [place] [address] CO2 [Moles/Vol] 25 22-29 mmol/L Normal 02-05-2020 [facility] ([place]) (70777) Comment: Performed By: #### CBC, ADIF F, ANEU, GFR, DIMER #### [place] [address] #### BMP, TROP #### [address] [address] Creatinine [Mass/Vol] 1.09 0.70-1.30 mg/dL Normal 02-05-20 20 [facility] ([place]) (65171) Comment: Performed By: #### CBC, ADIF F, ANEU, GFR, DIMER #### [address] [address] #### BMP, TROP #### [address] [address] Electrolyte Balance 11.0 mEq/L Normal 02-05-2020 [facility] ([place]) (01431) Comment: Performed By: #### CBC, ADIF F, ANEU, GFR, DIMER #### [place] [address] #### BMP, TROP #### [address] [address] Globulin (S) [Mass/Vol] 3.7 G/dL Normal 2019 [facility] ([place] (94626) Comment: Performed By: #### CBC, ADIF F, ANEU, GFR, DIMER #### [place] [address] #### BMP, TROP #### [address] [address] Glucose [Mass/Vol] 100 70-105 mg/dL Normal 02-05-2020 [facility] ([place]) (04692) Comment: Performed By: #### CBC, ADIF F, ANEU, GFR, DIMER #### [address] [address] #### BMP, TROP #### [address] [address] Potassium [Moles/Vol] 4.1 3.5-5.1 mmol/L Normal 02-05-20 [facility] ([place]) (0000 0) Comment: Performed By: #### CBC, ADIF F, ANEU, GFR, DIMER #### [place] [address] #### BMP, TROP #### [address] [address] Protein [Mass/Vol] 7.4 6.4-8.2 G/dL Normal 02-05-2020 [facility] ([place]) (87343) Comment: Performed By: #### CBC, ADIF F, ANEU, GFR, DIMER #### [address] [address] #### BMP, TROP #### [address] [address] Sodium [Moles/Vol] 139 136-145 mmol/L Normal 02-05-2020 [facility] ([place]) (0000 0) Comment: Performed By: #### CBC, ADIF F, ANEU, GFR, DIMER #### [place] [address] #### BMP, TROP #### [address] [address] Urea nitrogen [Mass/Vol] 16 7-18 mg/dL Normal 02-04 [facility] ([place]) (0000 0) Comment: Performed By: #### CBC, ADIF F, ANEU, GFR, DIMER #### [place] [address] #### BMP, TROP #### [address] [address] Urea nitrogen/Creatinine [Mass 15 7-27 ratio Normal 02-05-2020 [facility] ratio] [facility] ([place]) (78045) Comment: Performed By: #### CBC, ADIF F, ANEU, GFR, DIMER #### [address] [address] #### BMP, TROP #### [address] [address] cbc on 2020-02-05 Erythrocyte distribution 14.0 11.5-14.5 % Normal 02-04 [facility] (RBC) [Ratio] [facility] ([place]) (77038) Comment: Performed By: #### CBC, ADIF F, ANEU, TROP, LIP, CMP, GFR #### [address] [address] Hematocrit (Bld) [Volume 47.5 42.0-52.0 % Normal 02-04 [facility] fraction] ([place]) (0000 0) Comment: Performed By: #### CBC, ADIF F, ANEU, TROP, LIP, CMP, GFR #### [address] [address] Hemoglobin (Bld) 16.0 14.0-18.0 G/dL Normal 02-05-2020 [facility] [Mass/Vol] [facility] ([place] (56924) Comment: Performed By: #### CBC, ADIF F, ANEU, TROP, LIP, CMP, GFR #### [address] [address] MCH (RBC) [Entitic mass] 29.4 27.0-31.2 pg Normal 02-04 [facility] ([place]) (0000 0) Comment: Performed By: #### CBC, ADIF F, ANEU, TROP, LIP, CMP, GFR #### [address] [address] MCHC (RBC) [Mass/Vol] 33.7 31.8-35.4 G/dL Normal 02-05-20 20 [facility] ([place]) (0000 0) Comment: Performed By: #### CBC, ADIF F, ANEU, TROP, LIP, CMP, GFR #### [address] [address] MCV (RBC) [Entitic vol] 87.3 80.0-94.0 fL Normal 2019 [facility] ([place]) (0000 0) Comment: Performed By: #### CBC, ADIF F, ANEU, TROP, LIP, CMP, GFR #### [address] [address] Platelet mean volume 8.6 7.4-10.4 fL Normal 0 [facility] (Bld) [Entitic vol] ([place]) (35723) Comment: Performed By: #### CBC, ADIF F, ANEU, TROP, LIP, CMP, GFR #### [address] [address] Platelets (Bld) [#/Vol] 251 130-400 10 3/mcL Normal 2019 [facility] ([place]) (69476) Comment: Performed By: #### CBC, ADIF F, ANEU, TROP, LIP, CMP, GFR #### [address] [address] RBC (Bld) [#/Vol] 5.45 4.04-6.13 10 6/mcL Normal 02-05-2020 [facility] ([place]) (0000 0) Comment: Performed By: #### CBC, ADIF F, ANEU, TROP, LIP, CMP, GFR #### [address] [address] WBC (Bld) [#/Vol] 12.60 4.60-10.80 10 3/mcL High 02-05-2020 [facility] ([place]) (0000 0) Comment: Performed By: #### CBC, ADIF F, ANEU, TROP, LIP, CMP, GFR #### [address] [address] .neuabs on Neutrophils (Bld) 7.70 2.85-6.16 10 3/mcL High 02-05-2020 [facility] [#/Vol] [facility] ([place]) (03683) Comment: Performed By: #### CBC, ADIF F, ANEU, GFR, DIMER #### [address] [address] #### BMP, TROP #### [address] [address] .gfr on 2020-02-05 GFR 91 ml/min/1.73sqm Normal 09-0 [facility] ([place]) (0000 0) Comment: Result Comment: GFR Population mean for Afri can Montenegrin, Non- Americans Ages 20-29 = 116 mL/min/1.73 [...] CBC, ADIF F, ANEU, GFR, DIMER #### [address] [address] #### BMP, TROP #### [address] [address] GFR Non- 75 ml/min/1.73sqm Normal 02-05-2020 [facility] ([place]) (14341) Comment: Result Comment: GFR Population mean for Afri can Montenegrin, Non- Americans Ages 20-29 = 116 mL/min/1.73 [...] CBC, ADIF F, ANEU, GFR, DIMER #### [address] [address] #### BMP, TROP #### [address] [address] .auto diff on 02-04 Ammonia (P) [Mass/Vol] 1.60 0.15-1.00 10 3/mcL High 020 [facility] ([place]) (68747) Comment: Performed By: #### CBC, ADIF F, ANEU, TROP, LIP, CMP, GFR #### [address] [address] Basophils (Bld) 0.10 0.00-0.19 10 3/[facility] Normal 02-05-2020 [facility] [#/Vol] [facility] ([place]) (34953) Comment: Performed By: #### CBC, ADIF F, ANEU, TROP, LIP, CMP, GFR #### [address] [address] Basophils/100 WBC (Bld) 0.8 0.0-2.5 % Normal 2019 [facility] ([place]) (0000 0) Comment: Performed By: #### CBC, ADIF F, ANEU, TROP, LIP, CMP, GFR #### [address] [address] Eosinophils (Bld) 0.40 0.00-0.40 10 3/mcL Normal 02-05-2020 [facility] [#/Vol] [facility] ([place]) (34493) Comment: Performed By: #### CBC, ADIF F, ANEU, TROP, LIP, CMP, GFR #### [address] [address] Eosinophils/100 WBC (Bld) 2.9 0.0-7.0 % Normal [facility] ([place]) (0000 0) Comment: Performed By: #### CBC, ADIF F, ANEU, TROP, LIP, CMP, GFR #### [address] [address] Lymphocytes (Bld) 2.80 0.77-3.85 10 3/mcL Normal 02-05-2020 [facility] [#/Vol] [facility] ([place]) (13720) Comment: Performed By: #### CBC, ADIF F, ANEU, TROP, LIP, CMP, GFR #### [address] [address] Lymphocytes/100 WBC (Bld) 22.6 10.0-50.0 % Normal [facility] ([place]) (33801) Comment: Performed By: #### CBC, ADIF F, ANEU, TROP, LIP, CMP, GFR #### [address] [address] Monocytes/100 WBC (Bld) 12.9 1.7-13.0 % Normal 2019 [facility] ([place]) (0000 0) Comment: Performed By: #### CBC, ADIF F, ANEU, TROP, LIP, CMP, GFR #### [place] [address] [place], [place] [address] Neutrophils/100 WBC (Bld) 60.8 37.0-80.0 % Normal [facility] ([place]) (44132) Comment: Performed By: #### CBC, ADIF F, ANEU, TROP, LIP, CMP, GFR #### [facility] [address] [place], [place] [address] urine culture on 16-12-07 Bacteria identified 20,000 colonies/ml mixed Rachael l 12-04-2019 [facility] Cx Nom (U) bacterial skin contaminants [facility] Days (19752) PERFORMED BY: [address] [address] PATHOLOGIST THERAPEUTIC RECREATION ASSISTANT LELA NIXON M.D. Comment: Performed By: #### ADDONUAPL US, CUU #### [facility] tr [address] [place] [address] [place] dipstick and microscopic on 2019-12-04 Appearance (U) Clear Clear Normal 12-04-2019 [facility] (34518) Comment: Order Comment: Name Collecti on Type:: Clean-Voided Midstream Performed By: #### ADDONUAPL US, CUU #### [facility] tr [address] [place] [address] [place] Bacteria LM.HPF (Urine None Seen None Seen Normal [address] [place] [address]) [#/Area] [facility] Center (68814) Comment: Order Comment: Name Collecti on Type:: Clean-Voided Midstream Performed By: #### ADDONUAPL US, CUU #### [facility] tr [address] [place] [address] [place] Bilirubin,Urine Negative Negative Normal 12-04-2019 [facility] (00 000) Comment: Order Comment: Name Collecti on Type:: Clean-Voided Midstream Performed By: #### ADDONUAPL US, CUU #### [facility] tr [address] [place] [address] [place] Color (U) Yellow Yellow Normal 12-04-2019 [facility] (96747) Comment: Order Comment: Name Collecti on Type:: Clean-Voided Midstream Performed By: #### ADDONUAPL US, CUU #### [facility] tr [address] [place] [id number] [facility] Glucose Ql (U) Normal Normal Normal 12-04-2019 [facility] (31450) Comment: Order Comment: Name Collecti on Type:: Clean-Voided Midstream Performed By: #### ADDONUAPL US, CUU #### [facility] tr [address] [place] [id number] [facility] Hyaline Casts,Urine 0-8 0-8 Normal 12-04-2019 [facility] (57978) Comment: Order Comment: Name Collecti on Type:: Clean-Voided Midstream Result Comment: PERFORMED BY : [facility] EN[facility] [address] [place] [address] PATHOLOGIST THERAPEUTIC RECREATION ASSISTANT LELA NIXON M.D. Performed By: #### ADDONUAPL US, CUU #### [facility] tr [address] [place] [address] [facility] Ketones Ql (U) Negative Negative Normal 12-04-2019 [facility] (00 000) Comment: Order Comment: Name Collecti on Type:: Clean-Voided Midstream Performed By: #### ADDONUAPL US, CUU #### [facility] tr [address] [place] [address] [facility] Leukocyte esterase Test 2+ Negative High 2019 [facility] Ql (U) Center (43124) Comment: Order Comment: Name Collecti on Type:: Clean-Voided Midstream Performed By: #### ADDONUAPL US, CUU #### [facility] tr [address] [place] [id number] [place] Nitrite,Urine Negative Negative Normal 12-04-2019 [facility] (39361) Comment: Order Comment: Name Collecti on Type:: Clean-Voided Midstream Performed By: #### ADDONUAPL US, CUU #### [facility] tr [address] [place] [address] Occult Blood,Urine Trace Negative High 12-04-2019 [facility] (70274) Comment: Order Comment: Name Collecti on Type:: Clean-Voided Midstream Result Comment: PERFORMED BY : [facility] [address] [place], [place] [address] [address] PATHOLOGIST THERAPEUTIC RECREATION ASSISTANT LELA NIXON M.D. Performed By: #### ADDONUAPL US, CUU #### [facility] tr [address] [place] [address] pH (U) 5.0 5.0-9.0 [pH] Normal 12-04-2019 [facility] (27931) Comment: Order Comment: Name Collecti on Type:: Clean-Voided Midstream Performed By: #### ADDONUAPL US, CUU #### [facility] tr [address] [place] [address] Protein (U) [Mass/Vol] Negative Negative mg/dL Normal 020 [facility] nter (83533) Comment: Order Comment: Name Collecti on Type:: Clean-Voided Midstream Performed By: #### ADDONUAPL US, CUU #### [facility] tr [address] [place] [address] [place] RBC LM.HPF (Urine sed) 0-1 0-4 /[HPF] Normal 020 [facility] [#/Area] Center (00 000) Comment: Order Comment: Name Collecti on Type:: Clean-Voided Midstream Performed By: #### ADDONUAPL US, CUU #### [facility] tr [address] [place] [address] [place] Specificy [place],Urine 1.021 1.001-1.030 Normal [facility] nter (54898) Comment: Order Comment: Name Collecti on Type:: Clean-Voided Midstream Performed By: #### ADDONUAPL US, CUU #### [facility] tr [address] [place] [address] [place] Squamous Epithelial 0-1 0-2 Normal 12-04-2019 [facility] Cell,Urine Center (0 0000) Comment: Order Comment: Name Collecti on Type:: Clean-Voided Midstream Performed By: #### ADDONUAPL US, CUU #### [facility] C tr [address] [place] [address] Urobilinogen,Urine Normal Normal Normal 12-04-2019 [facility] (00 000) Comment: Order Comment: Name Collecti on Type:: Clean-Voided Midstream Performed By: #### ADDONUAPL US, CUU #### [facility] C tr [address] WBC LM.HPF (Urine sed) 10-19 0-4 High 08- 020 [facility] [#/Area] Center (00 000) Comment: Order Comment: Name Collecti on Type:: Clean-Voided Midstream Performed By: #### ADDONUAPL US, CUU #### [facility] tr [address] [place] [address] urine urobilinogen measurement by automa max test strip (mass/volume) on 2019-12-03 Urobilinogen (U) [Mass/Vol] Normal mg/dL Normal 12-03-2019 [facility] r (04823) urine total bilirubin detection by test strip on 2019-12-03 Bilirubin Ql (U) Negative Negative 12-03-2019 [facility] (68802) urine protein measurement by automated t est strip (mass/volume) on 2019-12-03 Protein (U) [Mass/Vol] Negative mg/dL Negative mg/dL [facility] Ct r (99302) urine ph measurement by automated test s trip on 2019-12-03 pH (U) 5.0 5.0-9.0 [pH] 12-03-2019 [facility]tr (35943) urine nitrite detection by test strip on 2019-12-03 Nitrite Ql (U) Negative Negative 12-03-2019 [facility] (14444) urine leukocyte esterase detection by au tomated test strip on 2019-12-03 Leukocyte esterase Auto test 2+ Negative 0 12-03-2019 [facility] strip Ql (U) Ctr (00 000) urine ketones measurement by automated t est strip (mass/volume) on 2019-12-03 Ketones (U) [Mass/Vol] Negative Negative 020 [facility]tr (79482 ) urine hemoglobin detection by automated test strip on 2019-12-03 Hemoglobin Auto test strip Trace Negative [facility] Ql (U) Ctr (24945 ) urine glucose measurement by automated t est strip (mass/volume) on 2019-12-03 Glucose Auto test strip Normal mg/dL Normal [facility] (U) [Mass/Vol] Medic al Ctr (38661) urine clarity by refractometry automated on 2019-12-03 Clarity Refractometry automated Clear Clear 12-03-2019 [facility] (U) Ctr (67203 ) urine bacteria detection by automated me thod on 2019-12-03 Bacteria Auto Ql (U) None seen None Seen 0 [facility] (56676 ) squamous epithelial cells detection in u rine sediment by light microscopy on 2019-12-03 Epithelial cells.squamous LM Ql 0-1 [HPF] 12-03-2019 [facility] (Urine sed) Ctr (000 00) specific gravity of urine by automated t est strip on 2019-12-03 Specific gravity (U) [Rel 1.021 1.001-1.030 [facility] density] Ctr (46853 ) serum or plasma urea nitrogen measuremen t (mass/volume) on 2019-12-03 Urea nitrogen [Mass/Vol] 14 9-23 mg/dL 12-02 [facility] (75004) serum or plasma total carbon dioxide janice surement (moles/volume) on 2019-12-03 CO2 [Moles/Vol] 23.7 22.0-30.0 mmol/L 12-03-2019 [facility] C[facility] (17061) serum or plasma total bilirubin measurem ent (mass/volume) on 2019-12-03 Bilirubin [Mass/Vol] 0.3 0.3-1.2 mg/dL 0 [facility] (83851) serum or plasma sodium measurement (mole s/volume) on 2019-12-03 Sodium [Moles/Vol] 136 136-146 mmol/L 12-03-2019 [facility] (41605) serum or plasma potassium measurement (m oles/volume) on 2019-12-03 Potassium [Moles/Vol] 3.9 3.5-5.1 mmol/L 12-03-19 [facility] (28310) serum or plasma non-glucuronidated bilir ubin measurement (mass/volume) on 2019-12-03 Bilirubin.indirect [Mass/Vol] 0.2 mg/dL 12-03-2019 [facility] (40782) serum or plasma glucose measurement (mas s/volume) on 2019-12-03 Glucose [Mass/Vol] 111 70-100 mg/dL 12-03-2019 [facility] (05561) Comment: ADA recommended reference ra ngeRandom Glucose Reference Range is dependent on time and content of last meal. Glucose of more than 200 mg/dL in a nonstressed, ambulatory subj ect supports the diagnosis of Diabetes Mellitus. serum or plasma creatinine measurement w ith calculation of estimated glomerular filtr on 2019-12-03 Creatinine [Mass/Vol] 0.98 0.64-1.27 mg/dL 12-03-19 [facility] (73290 ) serum or plasma chloride measurement (mo les/volume) on 2019-12-03 Chloride [Moles/Vol] 103 95-114 mmol/L 0 [facility] (65423) serum or plasma calcium measurement (mas s/volume) on 2019-12-03 Calcium [Mass/Vol] 10.0 8.2-10.2 mg/dL 12-03-2019 [facility] (02112) serum or plasma aspartate aminotransfera se measurement (enzymatic activity/volume) on 2019-12-03 AST [Catalytic activity/Vol] 31 10-42 U/L 0 12-03-2019 [facility] (27455) serum or plasma amylase measurement (enz ymatic activity/volume) on 2019-12-03 Amylase [Catalytic 32 28-100 U/L 12-03-2019 [facility] activity/Vol] Ctr (0 0000) serum or plasma alkaline phosphatase janice surement (enzymatic activity/volume) on 2019-12-03 ALP [Catalytic activity/Vol] 100 32-92 U/L 0 12-03-2019 [facility] (08283 ) serum or plasma albumin/globulin mass ra romeo on 2019-12-03 Albumin/Globulin [Mass ratio] 1.1 {ratio} 12-03-2019 [facility] (98548 ) serum or plasma alanine aminotransferase measurement without p-5'-p (enzymatic activi on 2019-12-03 ALT No additional P-5'-P 51 10-60 U/L 12-02 [facility] [Catalytic activity/Vol] Ctr (26383) serum globulin measurement by calculatio n (mass/volume) on 2019-12-03 Globulin (S) [Mass/Vol] 3.3 g/dL 2019 [facility] ([id number]) protein [mass/volume] in serum or plasma on 2019-12-03 Protein [Mass/Vol] 6.9 6.1-7.9 g/dL 12-03-2019 [facility] (92756) lipase on 7 Lipase [Catalytic 28.0 22-51 U/L Normal 12-03-2019 [facility] activity/Vol] [facility] (18509) Comment: Result Comment: PERFORMED BY : [facility] ENTER [address] [place] [address] PATHOLOGIST THERAPEUTIC RECREATION ASSISTANT LELA NIXON M.D. Performed By: #### LIPASE, A MY, BMP, HEPATIC, CBC #### [facility] tr [address] hepatic panel on 15-12-06 Albumin [Mass/Vol] 3.6 3.2-5.5 g/dL Normal 12-03-2019 [facility] (00 000) Comment: Performed By: #### LIPASE, A MY, BMP, HEPATIC, CBC #### [facility] tr [address] Albumin/Globulin [Mass ratio] 1.1 {ratio} Normal 12-03-2019 [facility] nter (73687) Comment: Performed By: #### LIPASE, A MY, BMP, HEPATIC, CBC #### [facility] tr [address] ALP [Catalytic activity/Vol] 100 32-92 U/L High 0 12-03-2019 [facility] (00 000) Comment: Performed By: #### LIPASE, A MY, BMP, HEPATIC, CBC #### [facility] tr [address] [place] [address] ALT [Catalytic activity/Vol] 51 10-60 U/L Normal 0 12-03-2019 [facility] nt (56622) Comment: Performed By: #### LIPASE, A MY, BMP, HEPATIC, CBC #### [facility] tr [address] [place] [address] AST [Catalytic activity/Vol] 31 10-42 U/L Normal 0 12-03-2019 [facility] nt (00512) Comment: Performed By: #### LIPASE, A MY, BMP, HEPATIC, CBC #### [facility] tr [address] [place] [address] Bilirubin [Mass/Vol] 0.3 0.3-1.2 mg/dL Normal 0 [facility] (00 000) Comment: Performed By: #### LIPASE, A MY, BMP, HEPATIC, CBC #### [facility] tr [address] [place] [address] Bilirubin,Indirect 0.2 mg/dL Normal 12-03-2019 [facility] (98767) Comment: Performed By: #### LIPASE, A MY, BMP, HEPATIC, CBC #### [facility] tr [address] [place] [address] Bilirubin.direct [Mass/Vol] 0.1 0.0-0.4 mg/dL Normal [facility] nt (73563) Comment: Performed By: #### LIPASE, A MY, BMP, HEPATIC, CBC #### [facility] tr [address] [place] [address] Globulin (S) [Mass/Vol] 3.3 g/dL Normal 2019 [facility] (00 000) Comment: Performed By: #### LIPASE, A MY, BMP, HEPATIC, CBC #### [facility] tr [address] [place] [address] Protein [Mass/Vol] 6.9 6.1-7.9 g/dL Normal 12-03-2019 [facility] (00 000) Comment: Performed By: #### LIPASE, A MY, BMP, HEPATIC, CBC #### [facility] tr [address] hematocrit [volume fraction] of blood by automated count on 2019-12-03 Hematocrit (Bld) [Volume 46.6 38.8-50.0 % 12-02 [facility] fraction] Ctr (07516 ) estimated glomerular filtration rate (gf r) non- on 2019-12-03 GFR/1.73 sq M predicted > 60 mL/min/{1.73_m2} 12-03-2019 [facility] among non-blacks [facility] (47135) (S/P/Bld) [Vol rate/Area] direct bilirubin measurement on 2019-12-03 Bilirubin.direct [Mass/Vol] 0.1 0.0-0.4 mg/dL [facility] (73547 ) complete blood count auto diff on 2019-12-03 Basophils (Bld) [#/Vol] 0.1 0.0-0.2 10*3/uL Normal 2019 [facility] nter (28232) Comment: Result Comment: PERFORMED BY : [facility] EN[facility] [address] [place] [address] PATHOLOGIST THERAPEUTIC RECREATION ASSISTANT LELA NIXON M.D. Performed By: #### LIPASE, A MY, BMP, HEPATIC, CBC #### [facility] tr [address] Basophils/100 WBC (Bld) 0.6 . % Normal 2019 [facility] (55057) Comment: Performed By: #### LIPASE, A MY, BMP, HEPATIC, CBC #### [facility] tr [address] Eosinophils (Bld) [#/Vol] 0.6 0.0-0.45 10*3/uL High [facility] nter (35037) Comment: Performed By: #### LIPASE, A MY, BMP, HEPATIC, CBC #### [facility] tr [address] [place] [address] Eosinophils/100 WBC (Bld) 4.5 . % Normal [facility] (18634) Comment: Performed By: #### LIPASE, A MY, BMP, HEPATIC, CBC #### [facility] tr [address] [place] [address] Erythrocyte distribution 14.5 12.0-14.8 % Normal 12-02 [facility] width (RBC) [Ratio] [facility] [place] (39671) Comment: Performed By: #### LIPASE, A MY, BMP, HEPATIC, CBC #### [facility] tr [address] [place] [address] Hematocrit (Bld) [Volume 46.6 38.8-50.0 % Normal 12-02 [facility] fraction] Medical Ce nt (17269) Comment: Performed By: #### LIPASE, A MY, BMP, HEPATIC, CBC #### [facility] tr [address] [place] [address] Hemoglobin (Bld) 15.8 13.0-17.0 g/dL Normal 12-03-2019 [facility] [Mass/Vol] Medical C enter (48969) Comment: Performed By: #### LIPASE, A MY, BMP, HEPATIC, CBC #### [facility] tr [address] [place] [address] Lymphocytes (Bld) 4.0 1.00-4.8 10*3/uL Normal 12-03-2019 [facility] [#/Vol] Medical Ce nt (39940) Comment: Performed By: #### LIPASE, A MY, BMP, HEPATIC, CBC #### [facility] tr [address] [place] [address] Lymphocytes/100 WBC (Bld) 29.4 . % Normal [facility] (00 000) Comment: Performed By: #### LIPASE, A MY, BMP, HEPATIC, CBC #### [facility] tr [address] [place] [address] MCH (RBC) [Entitic 34.0 32.5-35.6 g/dL Normal 12-03-2019 [facility] Medical nt (45632) Comment: Performed By: #### LIPASE, A MY, BMP, HEPATIC, CBC #### [facility] tr [address] [place] [address] MCH (RBC) [Entitic mass] 29.7 27.5-35.2 pg Normal 12-02 [facility] nt (64034) Comment: Performed By: #### LIPASE, A MY, BMP, HEPATIC, CBC #### [facility] tr [address] [place] [address] MCV (RBC) [Entitic vol] 87.4 83.5-101 fL Normal 2019 [facility] (00 000) Comment: Performed By: #### LIPASE, A MY, BMP, HEPATIC, CBC #### [facility] tr [address] [place] [address] Monocytes (Bld) [#/Vol] 1.1 0.0-0.8 10*3/uL High 2019 [facility] nt (43875) Comment: Performed By: #### LIPASE, A MY, BMP, HEPATIC, CBC #### [facility] tr [address] [place] [address] [place] Monocytes/100 WBC (Bld) 7.8 . % Normal 2019 [facility] (93850) Comment: Performed By: #### LIPASE, A MY, BMP, HEPATIC, CBC #### [facility] tr [address] [place] [address] Neutrophils (Bld) [#/Vol] 7.8 1.8-7.7 10*3/uL High 070 [facility] nt (82137) Comment: Performed By: #### LIPASE, A MY, BMP, HEPATIC, CBC #### [facility] tr [address] [place] [address] Neutrophils/100 WBC (Bld) 57.7 . % Normal 070 [facility] (00 000) Comment: Performed By: #### LIPASE, A MY, BMP, HEPATIC, CBC #### [facility] tr [address] Nucleated RBC/100 WBC (Bld) 0.0 0-0.5 % Normal [facility] [Ratio] Center (00 000) Comment: Performed By: #### LIPASE, A MY, BMP, HEPATIC, CBC #### [facility] tr [address] [place] [address] Platelet mean volume 8.7 6.6-10.1 fL Normal 0 [facility] (Bld) [Entitic vol] Center (30155) Comment: Performed By: #### LIPASE, A MY, BMP, HEPATIC, CBC #### [facility] tr [address] [place] [address] Platelets (Bld) [#/Vol] 249 150-450 10*3/uL Normal 2019 [facility] nter (13923) Comment: Performed By: #### LIPASE, A MY, BMP, HEPATIC, CBC #### [facility] tr [address] [place] [address] RBC (Bld) [#/Vol] 5.33 3.90-5.60 10*6/uL Normal 12-03-2019 [facility] (00 000) Comment: Performed By: #### LIPASE, A MY, BMP, HEPATIC, CBC #### [facility] tr [address] [place] [address] WBC (Bld) [#/Vol] 13.6 10*3/uL High 12-03-2019 [facility] (78942) Comment: Performed By: #### LIPASE, A MY, BMP, HEPATIC, CBC #### [facility] tr [address] [place] [address] body fluid albumin measurement (mass/vol ume) on 2019-12-03 Albumin (Body fld) 3.6 3.2-5.5 g/dL 12-03-2019 [facility] [Mass/Vol] Ctr (0000 0) blood neutrophil count by automated meth od (number/volume) on 2019-12-03 Neutrophils (Bld) [#/Vol] 7.8 1.8-7.7 10*3/uL 07- [facility] (41396 ) blood leukocytes automated count (number /volume) on 2019-12-03 WBC (Bld) [#/Vol] 13.6 10*3/uL 12-03-2019 [facility] (73121) blood hemoglobin measurement (mass/volum e) on 2019-12-03 Hemoglobin (Bld) [Mass/Vol] 15.8 13.0-17.0 g/dL [facility] r (91321) blood erythrocytes automated count (numb er/volume) on 2019-12-03 RBC (Bld) [#/Vol] 5.33 3.90-5.60 10*6/uL 12-03-2019 [facility] (29183) basic metabolic panel on 2019-12-03 Calcium [Mass/Vol] 10.0 8.2-10.2 mg/dL Normal 12-03-2019 [facility] ( 000) Comment: Performed By: #### LIPASE, A MY, BMP, HEPATIC, CBC #### [facility] tr [address] [place] [address] [place] Chloride [Moles/Vol] 103 95-114 mmol/L Normal 0 [facility] (00 000) Comment: Performed By: #### LIPASE, A MY, BMP, HEPATIC, CBC #### [facility] tr [address] [place] [address] [place] CO2 [Moles/Vol] 23.7 22.0-30.0 mmol/L Normal 12-03-2019 [facility] ( 000) Comment: Performed By: #### LIPASE, A MY, BMP, HEPATIC, CBC #### [facility] tr [address] [place] [address] [place] Creatinine [Mass/Vol] 122.6223527234 Normal [facility] (00 000) Comment: Performed By: #### LIPASE, A MY, BMP, HEPATIC, CBC #### [facility] tr [address] [place] [id number] [place] Creatinine [Mass/Vol] 0.98 0.64-1.27 mg/dL Normal 12-03-19 20 [facility] (83740) Comment: Performed By: #### LIPASE, A MY, BMP, HEPATIC, CBC #### [facility] tr [address] [place] [id number] [place] Estimated GFR ( > 60 Normal 020 [facility] Center (00 000) Comment: Result Comment: GFR estimate d reference range: According to KDOQI guidelines, <60 ml/min/1.73m 2 is sufficient to diagnose a patient with chronic kidney disease. Performed By: #### LIPASE, A MY, BMP, HEPATIC, CBC #### [facility] tr [address] [place] [address] [place] Estimated GFR (Non- Am > 60 Normal 12-03-2019 [facility] (00 000) Comment: Performed By: #### LIPASE, A MY, BMP, HEPATIC, CBC #### [facility] tr [address] [place] [id number] [facility] Glucose [Mass/Vol] 111 70-100 mg/dL High 12-03-2019 [facility] (71148) Comment: Result Comment: Random Gluco se Reference Range is dependent on time and content of last meal. Glucos e of more than 200 mg/dL in a nonstressed, ambulatory subj ect supports the diagnosis of Diabetes Mellitus. ADA recommended reference ra nge Performed By: #### LIPASE, A MY, BMP, HEPATIC, CBC #### [facility] tr [address] [place] [id number] [facility] Potassium [Moles/Vol] 3.9 3.5-5.1 mmol/L Normal 12-03-19 20 [facility] (00 000) Comment: Performed By: #### LIPASE, A MY, BMP, HEPATIC, CBC #### [facility] tr [address] [place] [id number] [place] Sodium [Moles/Vol] 136 136-146 mmol/L Normal 12-03-2019 [facility] (00 000) Comment: Performed By: #### LIPASE, A MY, BMP, HEPATIC, CBC #### [facility] tr [address] [place] [id number] [place] Urea nitrogen [Mass/Vol] 14 9-23 mg/dL Normal 12-02 [facility] (00 000) Comment: Performed By: #### LIPASE, A MY, BMP, HEPATIC, CBC #### [facility] tr [address] [place] [address] automated urine color determination on 2019-12-03 Color (U) Yellow Yellow 12-03-2019 [facility] (27271) automated neutrophil % on 2019-12-03 Neutrophils/100 WBC (Bld) 57.7 % [facility] (56175) automated monocyte % on 2019-12-03 Monocytes/100 WBC (Bld) 7.8 % 2019 [facility] (72427) automated leukocytes count in urine sedi ment (number/area) on 2019-12-03 WBC Auto (Urine sed) 10-19 [HPF] 020 [facility] [#/Area] Ctr (30598 ) automated erythrocytes count in urine se diment (number/area) on 2019-12-03 RBC Auto (Urine sed) [#/Area] 0-1 [HPF] 12-03-2019 [facility] (91576 ) automated erythrocyte mean corpuscular v olume on 2019-12-03 MCV (RBC) [Entitic vol] 87.4 83.5-101 fL 2019 [facility] (57290) automated erythrocyte mean corpuscular h emoglobin concentration measurement (mass/vol on 2019-12-03 MCHC (RBC) [Mass/Vol] 34.0 32.5-35.6 g/dL 12-03-19 20 [facility] (64852) automated erythrocyte mean corpuscular h emoglobin (mass per erythrocyte) on 2019-12-03 MCH (RBC) [Entitic mass] 29.7 27.5-35.2 pg 12-02 [facility] (73985 ) automated erythrocyte distribution width ratio on 2019-12-03 Erythrocyte distribution 14.5 12.0-14.8 % 12-02 [facility] width (RBC) [Ratio] Ctr (19873) automated eosinophil count on 2019-12-03 Eosinophils (Bld) [#/Vol] 0.6 0.0-0.45 10*3/uL 07- [facility] r (42953) automated eosinophil % on 2019-12-03 Eosinophils/100 WBC (Bld) 4.5 % [facility] (00908) automated blood platelet mean volume janice surement on 2019-12-03 Platelet mean volume (Bld) 8.7 6.6-10.1 fL [facility] [Entitic vol] Ctr (0 0000) automated blood platelet count (count/vo lume) on 2019-12-03 Platelets (Bld) [#/Vol] 249 150-450 10*3/uL 2019 [facility] (17824 ) automated blood monocyte count on 2019-12-03 Monocytes (Bld) [#/Vol] 1.1 0.0-0.8 10*3/uL 2019 [facility] (74375 ) automated blood lymphocyte count as perc entage of total leukocytes on 2019-12-03 Lymphocytes/100 WBC (Bld) 29.4 % [facility] (66421) automated blood lymphocyte count (number /volume) on 2019-12-03 Lymphocytes (Bld) [#/Vol] 4.0 1.00-4.8 10*3/uL - [facility] Ct r (87657) automated basophil count on 2019-12-03 Basophils (Bld) [#/Vol] 0.1 0.0-0.2 10*3/uL 2019 [facility] (72668 ) automated basophil % on 2019-12-03 Basophils/100 WBC (Bld) 0.6 % 2019 [facility] (79817) amylase on Amylase [Catalytic 32 28-100 U/L Normal 12-03-2019 [facility] activity/Vol] Medica l Center (63564) Comment: Performed By: #### LIPASE, A MY, BMP, HEPATIC, CBC #### [facility] tr [address] [place] [address] No panel information on 2019-12-03 Hyaline casts LM Ql 0-8 [LPF] 12-03-2019 [facility] (Urine sed) Medical Ctr (27850) GFR/1.73 sq > 60 mL/min/{1.73_m2 12-03-2019 [facility] M.predicted MDRD } Med ical Ctr (45975) (S/P/Bld) [Vol rate/Area] Comment: GFR estimated reference rang e: According to KDOQI guidelines, <60 ml/min/1.73m2 is sufficient to diagnose a patient with chronic kidney disease. Lipase [Catalytic 28.0 22-51 U/L 12-03-2019 [facility] activity/Vol] Medica l Ctr (38780) Nucleated RBC/100 WBC 0.0 0-0.5 % 12-03-19 20 [facility] (Bld) [Ratio] Medica l Ctr (77036) Pharmacy Creatinine [id number] 12-02 [facility] Clearance (Chem Medi elva Ctr (71398) xr chest 2 views on 2019-11-06 XR CHEST 2 VIEWS ORIGINAL Normal 11-06-2019 [facility] XR XR CHEST 2 VIEWS, [facility] ([place]) (72418) Clinical Statement: Chest Pain, Comparison: 01/14/2014 Findings: [...] Troponin I.cardiac <0.020 0.000-0.040 ng/mL Normal 0 [facility] [Mass/Vol] [facility] ([place] (64838) Comment: Result Comment: Troponin I r eference range: 0.00-0.040 ng/mL Negative an d non-diagnostic. >0.040 ng/mL Consistent with cardiac damage, increased clinical risk and possibility of myocardial in farction. Serial measurements, a rise & fall in test results, clinical histo ry, appropriate symptoms and/or ECG changes may help assess possibility of [place]. *Other non-acute coronary sy ndrome conditions such as CHF, myoc arditis, pulmonary emboli, sepsis and cardiac surgery could result in myoc ardial damage and increased troponi n levels. Performed By: #### CBC, ADIF F, ANEU, GFR, DIMER #### [address] [address] #### BMP, TROP #### [address] [address] dimer on 2019-11-06 Fibrin D-dimer FEU IA <200 0-230 ug/mL Normal 11-06-19 20 [facility] (Bld) [Mass/Vol] ([place] ) (06850) Comment: Result Comment: The result o f [...] CBC, ADIF F, ANEU, GFR, DIMER #### [address] [address] #### BMP, TROP #### [address] [address] cbc on 2019-11-06 Erythrocyte distribution 14.7 11.5-14.5 % High 11-05 [facility] width (RBC) [Ratio] ([place]) (88846) Comment: Performed By: #### CBC, ADIF F, ANEU, GFR, DIMER #### [address] [address] #### BMP, TROP #### [address] [address] Hematocrit (Bld) [Volume 45.1 42.0-52.0 % Normal 11-05 [facility] fraction] ([place]) (0000 0) Comment: Performed By: #### CBC, ADIF F, ANEU, GFR, DIMER #### [address] [address] #### BMP, TROP #### [address] [address] Hemoglobin (Bld) 15.5 14.0-18.0 G/dL Normal 11-06-2019 [facility] [Mass/Vol] [facility] ([place]) (12349) Comment: Performed By: #### CBC, ADIF F, ANEU, GFR, DIMER #### [place] [address] #### BMP, TROP #### [address] [address] MCH (RBC) [Entitic mass] 30.0 27.0-31.2 pg Normal 11-05 [facility] ([place]) (0000 0) Comment: Performed By: #### CBC, ADIF F, ANEU, GFR, DIMER #### [place] [address] #### BMP, TROP #### [address] [address] MCHC (RBC) [Mass/Vol] 34.4 31.8-35.4 G/dL Normal 11-06-19 [facility] ([place]) (0000 0) Comment: Performed By: #### CBC, ADIF F, ANEU, GFR, DIMER #### [place] [address] #### BMP, TROP #### [address] [address] MCV (RBC) [Entitic vol] 87.1 80.0-94.0 fL Normal 2019 [facility] ([place]) (0000 0) Comment: Performed By: #### CBC, ADIF F, ANEU, GFR, DIMER #### [place] [address] #### BMP, TROP #### [address] [address] Platelet mean volume 8.6 7.4-10.4 fL Normal 0 [facility] (d) [Entitic vol] ([place]) (94969) Comment: Performed By: #### CBC, ADIF F, ANEU, GFR, DIMER #### [address] [address] #### BMP, TROP #### [address] [address] Platelets (Bld) [#/Vol] 243 130-400 10 3/mcL Normal 2019 [facility] ([place]) (24487) Comment: Performed By: #### CBC, ADIF F, ANEU, GFR, DIMER #### [address] [address] #### BMP, TROP #### [address] [address] RBC (Bld) [#/Vol] 5.17 4.04-6.13 10 6/mcL Normal 11-06-2019 [facility] ([place]) (0000 0) Comment: Performed By: #### CBC, ADIF F, ANEU, GFR, DIMER #### [place] [address] #### BMP, TROP #### [address] [address] WBC (Bld) [#/Vol] 13.30 4.60-10.80 10 3/mcL High 11-06-2019 [facility] ([place]) (0000 0) Comment: Performed By: #### CBC, ADIF F, ANEU, GFR, DIMER #### [place] [address] #### BMP, TROP #### [address] [address] bmp on 2019-11-06 Calcium [Mass/Vol] 9.6 8.4-10.2 mg/dL Normal 11-06-2019 [facility] ([place]) (0000 0) Comment: Performed By: #### CBC, ADIF F, ANEU, GFR, DIMER #### [address] [address] #### BMP, TROP #### [address] [address] Chloride [Moles/Vol] 103 98-107 mmol/L Normal 0 [facility] ([place]) (0000 0) Comment: Performed By: #### CBC, ADIF F, ANEU, GFR, DIMER #### [place] [address] #### BMP, TROP #### [address] [address] CO2 [Moles/Vol] 28 22-29 mmol/L Normal 11-06-2019 [facility] ([place]) (83835) Comment: Performed By: #### CBC, ADIF F, ANEU, GFR, DIMER #### [place] [address] #### BMP, TROP #### [address] [address] Creatinine [Mass/Vol] 1.20 0.70-1.30 mg/dL Normal 11-06-19 20 [facility] ([place]) (00279) Comment: Performed By: #### CBC, ADIF F, ANEU, GFR, DIMER #### [place] [address] #### BMP, TROP #### [address] [address] Electrolyte Balance 8.0 mEq/L Normal 11-06-2019 [facility] ([place]) (44841) Comment: Performed By: #### CBC, ADIF F, ANEU, GFR, DIMER #### [place] [address] #### BMP, TROP #### [address] [address] Glucose [Mass/Vol] 94 70-105 mg/dL Normal 11-06-2019 [facility] ([place]) (32309) Comment: Performed By: #### CBC, ADIF F, ANEU, GFR, DIMER #### [address] [address] #### BMP, TROP #### [address] [address] Potassium [Moles/Vol] 4.6 3.5-5.1 mmol/L Normal 11-06-19 [facility] ([place]) (0000 0) Comment: Performed By: #### CBC, ADIF F, ANEU, GFR, DIMER #### [address] [address] #### BMP, TROP #### [address] [address] Sodium [Moles/Vol] 139 136-145 mmol/L Normal 11-06-2019 [facility] ([place]) (0000 0) Comment: Performed By: #### CBC, ADIF F, ANEU, GFR, DIMER #### [address] [address] #### BMP, TROP #### [address] [address] Urea nitrogen [Mass/Vol] 19 7-18 mg/dL High 11-05 [facility] ([place]) (82341) Comment: Performed By: #### CBC, ADIF F, ANEU, GFR, DIMER #### [address] [address] #### BMP, TROP #### [address] [address] Urea nitrogen/Creatinine [Mass 16 7-27 ratio Normal 11-06-2019 [facility]] [facility] ([place]) (64215) Comment: Performed By: #### CBC, ADIF F, ANEU, GFR, DIMER #### [address] [address] #### BMP, TROP #### [address] [address] .neuabs on Neutrophils (Bld) 7.50 2.85-6.16 10 3/mcL High 11-06-2019 [facility] [#/[facility] ([place]) (08826) Comment: Performed By: #### CBC, ADIF F, ANEU, GFR, DIMER #### [address] [address] #### BMP, TROP #### [address] [address] .gfr on 2019-11-06 GFR Non- 67 ml/min/1.73sqm Normal 11-06-2019 [facility] ([place]) (23846) Comment: Result Comment: GFR Population mean for Afri can Montene[place], Non- Americans Ages 20-29 = 116 mL/min/1.73 [...] CBC, ADIF F, ANEU, GFR, DIMER #### [address] [address] #### BMP, TROP #### [place] [address] GFR 81 ml/min/1.73sqm Normal 10-27 [facility] ([place]) (0000 0) Comment: Result Comment: GFR Population mean for Afri can Montene[place]in, Non- Americans Ages 20-29 = 116 mL/min/1.73 [...] CBC, ADIF F, ANEU, GFR, DIMER #### [address] [address] #### BMP, TROP #### [address] [address] .auto diff on 11-05 Ammonia (P) [Mass/Vol] 1.10 0.15-1.00 10 3/mcL High 11-05- 020 [facility] ([place]) (20313) Comment: Performed By: #### CBC, ADIF F, ANEU, GFR, DIMER #### [place] [address] #### BMP, TROP #### [address] [address] Basophils (Bld) 0.10 0.00-0.19 10 3/mcL Normal 11-06-2019 [facility] [#/Vol] [facility] ([place]) (30962) Comment: Performed By: #### CBC, ADIF F, ANEU, GFR, DIMER #### [place] [address] #### BMP, TROP #### [address] [address] Basophils/100 WBC (Bld) 0.9 0.0-2.5 % Normal 2019 [facility] ([place]) (0000 0) Comment: Performed By: #### CBC, ADIF F, ANEU, GFR, DIMER #### [address] [address] #### BMP, TROP #### [address] [address] Eosinophils (Bld) 0.40 0.00-0.40 10 3/[facility] Normal 11-06-2019 [facility] [#/Vol] [facility] ([place]) ([id number]) Comment: Performed By: #### CBC, ADIF F, ANEU, GFR, DIMER #### [place] [id number] #### BMP, TROP #### [address] [address] Eosinophils/100 WBC (Bld) 3.3 0.0-7.0 % Normal 10-27 [facility] ([place]) (0000 0) Comment: Performed By: #### CBC, ADIF F, ANEU, GFR, DIMER #### [place] [address] #### BMP, TROP #### [address] [address] Lymphocytes (Bld) 4.20 0.77-3.85 10 3/mcL High 11-06-2019 [facility] [#/Vol] [facility] ([place]) ([address]) Comment: Performed By: #### CBC, ADIF F, ANEU, GFR, DIMER #### [place] [address] #### BMP, TROP #### [address] [address] Lymphocytes/100 WBC (Bld) 31.4 10.0-50.0 % Normal 10-27 [facility] ([place]) ([address]) Comment: Performed By: #### CBC, ADIF F, ANEU, GFR, DIMER #### [place] [address] #### BMP, TROP #### [address] [address] Monocytes/100 WBC (Bld) 8.6 1.7-13.0 % Normal 2019 [facility] ([place]) (0000 0) Comment: Performed By: #### CBC, ADIF F, ANEU, GFR, DIMER #### [place] [address] #### BMP, TROP #### [address] [address] Neutrophils/100 WBC (Bld) 55.8 37.0-80.0 % Normal 10-27 [facility] ([place]) ([id number]) Comment: Performed By: #### CBC, ADIF F, ANEU, GFR, DIMER #### [facility] [address] [place], [place] [address] #### BMP, TROP #### [address] [address] xr ribs unilateral on 2017-10-28 XR RIBS UNILATERAL FINAL REPORTEXAM: XR RIBS Rachael l 10-28-2017 [facility] UNILATERALHISTORY: PAIN [facility] TECHNIQUE: PA chest, [facility] ([id number]) oblique ribsPRIORS: None.FINDINGS: Lungs are clear. There is no pleural effusion or pneumothorax. No rib fracture is identified.IMPRESSION: Negative for rib fracture.Technologist: MCLDictated By: Sara GIPSON MD By: Sara GIPSON MD Out: 10/28/17 09:57:44 xr chest 1 view on 2017-10-28 XR CHEST 1 VIEW FINAL REPORTEXAM: XR CHEST Normal 10-28-2017 [facility] 1 VIEWHISTORY: COUGH [facility] TECHNIQUE: Lateral view of ([id number]) the chest PRIORS: None.FINDINGS: Lateral view demonstrates no evidence of lung consolidation, pleural effusion or pneumothorax. IMPRESSION: Negative lateral view. Technologist: MCLDictated By: Sara GIPSON MD By: Sara GIPSON MD Out: 10/28/17 09:56:33 ed progress note on 2017-10-28 ED Progress Note Patient to the ED from [facility] 10-28-2017 [facility] with complaint of [facility] left lower chest pain. ([id number]) Patient states acute onset of left lower [...] Patient who verbalizes understanding. Patient discharged from [facility] to home without incident. ed physician report on 2017-10-28 ED Physician Patient: ALO FALK MRN: Normal 10-28-2017 [facility] Report [id number] [facility] Age: 37 years Sex: Male : ([id number]) 1980 Associated Diagnoses: Chest pain, musculoskeletal Author: [...] Soft, Nontender, Non distended, Normal bowel sounds. [place]bon coma scale Total score: Total score: 15. Neurological Alert and oriented to person, place, time, and situation, No focal neurological deficit observed, CN II-XII intact, normal sensory observed, normal motor observed, normal speech observed. Medical Decision Making Chest X-Ray: No acute disease process. Radiology results: rib series neg. Impression and Plan Diagnosis Chest pain, musculoskeletal ([id number] R07.89, Working, Medical) Plan Condition: Improved, Stable. [...] BMI (Body Mass Index) 36 kg/m2 12-03-2019 [facility] ([id number]) Body Temperature 97.3 [degF] 12-03-2019 [facility] (78115) Body weight 110.67 kg 12-03-2019 [facility] (57094) BP Diastolic 64 mm[Hg] 12-04-2019 [facility] (59119) BP Systolic 111 mm[Hg] 12-04-2019 [facility] (38837) Height 175.26 cm 12-03-2019 [facility] (00394) Pulse (Heart Rate) 74 /min 12-04-2019 [facility] (22584) Pulse Oximetry 99 % 12-04-2019 [facility] (26474) Respiratory Rate 16 /min 12-04-2019 [facility] (11530) Encounters Date Type Reason Provider Location 12-03-2019 - Emergency department [facility] 12-04-2019 patient visit [facility] 10-28-2017 - Emergency department [facility] Fa cility:[id number] 10-28-2017 patient visit [facility] Procedures Procedure Name Date Provider Location Bacteria identified Cx Nom (U) 12-03-2019 F [facility] ([id number]) Plan of Treatment Plan Description Date Location Patient Education Abdominal Pain (ED) [facility] ([id number]) Patient referral no information [facility] ([id number]) Payers Payer Name Policy Number Location Self Pay [facility] ([id number]) The following information is from the original human readable contentNo Payer Records FoundNo Payer Records FoundNo Payer Records FoundNo Payer Records FoundNo Payer Records Found Social History Type Social History Description Date Locat ion Tobacco smoking status Smoker (finding) 12-03-2019 [facility] (000 ) Sex Assigned At Male 1980 [facility] (000 ) The following information is from [...] BE BASED ON THE PRIMARY CLINICAL RECORDS. [facility] provides no warranty or guarantee of the accuracy or completeness of information in this document. UNRECOGNIZED CONTENT PROVIDED BELOW FOR UNRECOGNIZED SECTION No Status Records FoundNo Status Records FoundNo Status Records Found UNRECOGNIZED CONTENT PROVIDED BELOW FOR UNRECOGNIZED SECTION INFORMATION SOURCE DATE CREATED AUTHOR AUTHOR'S ORGANIZATIO N 11/30/2017 [facility] DATE CREATED AUTHOR AUTHOR'S ORGANIZATIO N 02/05/2020 [facility] ([place]) DATE CREATED AUTHOR AUTHOR'S ORGANIZATIO N 03/05/2020 [facility]
== END 2019-11-07 15:57 | disposition home or self-care (01) ==
PROVIDERS: Emergency Provider Emergency Medicine
DX: R07.81 Pleurodynia (principal); R91.1 Solitary pulmonary nodule; Z72.0 Tobacco use
CPT/HCPCS: 71045; 71275; 80048; 84484; 85025; 93005; 96360; 99284; J7030; Q9967; A4216

== ENCOUNTER 2022-08-21 12:56 | Emergency (ER) | payer SELFPAY ==
[2022-08-21 12:57] VITALS: BP 157/101; PULSE 123; RESP 18; TEMP 37.7; O2SAT 95; BMI 35.1
--- NOTE | 2022-08-21 13:10 | EDS_ITS ---
HPI History of Present Illness Chief Complaint: Cough Informant: patient Onset/Context/Timing Onset: Days (4 days) Context: Gradual Onset Timing: Waxes and wanes Current Severity: Mild Maximum Severity: Moderate Narrative Narrative: Patient presents with 4-day history of cough and congestion along with vomiting and diarrhea. He had a fever of 102 yesterday. He states he was around his daughter last weekend who tested positive for COVID this past week. 2 days later she tested negative and was able to go back to work. PFSH PFSH Medical History no medical history no medical history Home Medications ondansetron 4 mg disintegrating tablet 4 mg PO Q8H PRN PRN Nausea #10 tabs 08/21/22 [Rx Last Taken Unknown] Allergy/AdvReac Type Severity Reaction Status Date / Time doxycycline Allergy Rash Verified 08/21/22 12:59 Social History Smoking Status: Current every day smoker tobacco type: cigarettes ROS ROS ED Constitutional Constitutional ED: Reports fever(s); Denies chills Eyes Eyes: Denies change in vision or discharge from eye(s) ENT ENT ED: Denies discharge from eye(s), rhinorrhea or sore throat Cardiovascular Cardiovascular: Denies chest pain or palpitations Respiratory/Chest Respiratory/Chest: Reports cough and dyspnea Gastrointestinal Gastrointestinal: Reports diarrhea, nausea and vomiting; Denies abdominal pain Genitourinary Genitourinary ED: Denies dysuria Musculoskeletal Musculoskeletal: Reports myalgias; Denies back pain or extremity pain Integumentary Denies Abrasions or rash Neurologic Neurologic: Denies headache(s) or weakness Allergic/Immunologic Allergic/Immunologic ED: Denies lip swelling or urticaria EXAM Physical Exam Const Vital Signs: 08/21/22 12:57 08/21/22 13:09 Temperature 99.8 F H Temperature Source Temporal Pulse Rate 123 H Respiratory Rate 18 Respiratory Effort Normal Respiratory Depth Normal Respiratory Pattern Normal Blood Pressure 157/101 H Blood Pressure Mean 119 Pulse Ox 95 Oxygen Delivery Method Room Air Room Air Positive well nourished and well developed General Appearance ED: well developed HEENT Reports normocephalic and head/scalp atraumatic Eyes PERRL and EOMs intact bilaterally Neck supple Chest Wall inspection of chest normal and palpation of chest normal Resp normal respiratory effort and clear to auscultation bilaterally Cardio regular rhythm Rate: tachycardic GI non-tender Auscultation: hypoactive bowel sounds Palpation: soft Extremity normal to inspection Neuro oriented x3 and no sensory deficits noted Sensorium / Orientation: alert Motor Exam: strength 5/5 throughout Psych mental status grossly normal Skin no rashes or lesions noted MDM MDM MDM Narrative Medical decision making narrative: Labwork obtained to evaluate for leukocytosis, anemia, and electrolyte derangement. Chest x-ray obtained to evaluate for acute lung pathology, cardiac size, or mediastinal abnormality. Swab for COVID and influenza sent. Patient given Toradol, Zofran, IV fluids. History & Record Review Discussion w/independent historian: Patient Lab Data Attestation: I reviewed the patient's lab results. Labs: Laboratory Results - last 24 hr 08/21/22 08/21/22 13:25 13:25 WBC 7.8 RBC 5.92 Hgb 17.5 H Hct 51.9 MCV 87.7 MCH 29.6 MCHC 33.7 RDW Std Deviation 44.7 H RDW Coeff of Marquise 13.8 Plt Count 255 MPV 10.0 Immature Gran % (Auto) 0.600 Neut % (Auto) 49.8 Lymph % (Auto) 26.3 [place] % (Auto) 18.9 H Eos % (Auto) 3.6 Baso % (Auto) 0.8 Absolute Neuts (auto) 3.9 Absolute Lymphs (auto) 2.04 Nucleated RBC % 0 Sodium 135 L Potassium 4.4 Chloride 106 Carbon Dioxide 27.0 Anion Gap 2 L BUN 17 Creatinine 1.33 H Estim Creat Clear Calc 72.35 Est GFR (MDRD) Af Amer 76 Est GFR (MDRD) Non-Af 62 BUN/Creatinine Ratio 12.8 Glucose 94 Calcium 9.1 Total Bilirubin 0.50 Direct Bilirubin 0.10 AST 42 H ALT 59 Alkaline Phosphatase 111 Total Protein 7.9 Albumin 3.4 Globulin 4.5 H Radiography Chest X-Ray - ED: 1 View, Read by ED Physician, Normal, Heart, Lungs, Mediastinum and No Infiltrates Diagnostic Testing: Clinical Impression(s) from Imaging Studies Chest X-Ray 08/21/22 13:13 IMPRESSION: No radiographic evidence of acute cardiopulmonary disease. Electronically Signed: Ankur Molina MD, CON at 13:44 EDT , Differential Diagnosis Abdominal Pain: Cholecystitis Reason(s) Cholecystitis less likely: clinical exam does not support Treatment and Re-Evaluation :: CBC was normal white count at 7.8. Hemoglobin is concentrated at 17.5. Chemistry studies significant only for a creatinine slightly bumped at 1.33. LFTs are unremarkable. Swab for COVID and influenza is negative. On repeat evaluation patient is resting comfortably. Nausea is improved. He is able to tolerate p.o. fluids at this time. I will write him for Zofran at home. Return instructions given. Discharge Plan Triage Chief Complaint: Cough ED Provider: Gemma Kirk Dx/Rx/DC Orders Clinical Impression: Gastroenteritis Instructions: ED Gastroenteritis, Viral (Adult) Prescriptions: New ondansetron 4 mg tablet,disintegrating 4 mg PO Q8H PRN PRN (Reason: Nausea) Qty: 10 0RF Primary Care Provider: Care Physician,No Primary Referrals: Vinny Rosas MD [Med Staff - Bladder Trimmer] - As Needed Care Physician,No Primary [Primary Care Provider] - Disposition Disposition: Home, Self Care
--- NOTE | 2022-08-21 13:13 | RAD_ITS ---
INDICATION: cough, fever EXAMINATION/TECHNIQUE: X-RAY - XR Chest 1 View COMPARISON: 11/07/2019 FINDINGS: LINES/DEVICES: None. LUNGS: No consolidation, edema or effusion. No pneumothorax. MEDIASTINUM AND CARDIOVASCULAR STRUCTURES: Cardiac silhouette not enlarged. Central airways and mediastinal contour are unremarkable. BONES AND SOFT TISSUES: Unremarkable. Stable findings. RAD/Chest 1 View (Portable) IMPRESSION: No radiographic evidence of acute cardiopulmonary disease. Electronically Signed: Ankur Molina MD, CON at 13:44 EDT ,
[2022-08-21 13:34] LABS: Absolute Lymphocyte Count 2.04 X10^3/uL (0.83-4.51); Absolute Neutrophil Count 3.9 X10^3/uL (2.0-7.7); Basophil# 0.06 X10^3/uL; Basophil% 0.8 % (0-1); Eosinophil# 0.28 X10^3/uL; Eosinophils% 3.6 % (0-5); Hematocrit 51.9 % (40-54); Hemoglobin 17.5 g/dL (13.0-16.5); Lymphocyte # 2.04 X10^3/ul (0.83-4.51); Lymphocyte % 26.3 % (19-41); Mean Corp Hgb Conc 33.7 g/dL (32-36); Mean Corpuscular Hgb 29.6 pg (27.0-32.0); Mean Corpuscular Volume 87.7 fL (80-94); Monocyte# 1.47 X10^3/uL; Monocyte% 18.9 % (0-10); NRBC Flagged by Analyzer 0 % (0-5); Neutrophil # 3.86 X10^3/uL (2.7-7.7); Neutrophil % 49.8 % (47-70); Platelet Count 255 K/mm3 (150-450); RBC Distribution Width CV 13.8 % (11.6-14.6); RBC Distribution Width SD 44.7 fl (35.1-43.9); Red Blood Count 5.92 M/mm3 (4.6-6.2); White Blood Count 7.8 K/mm3 (4.4-11.0)
[2022-08-21] MEDS: 0.9% Normal Saline 1,000 ML 1000 ML IV (13:40)
[2022-08-21] MEDS: Ketorolac 30 MG/ML Syringe IV (13:40)
[2022-08-21] MEDS: Ondansetron 4 MG/2 ML Vial IV (13:40)
[2022-08-21 13:50] LABS: AST(SGOT) 42 U/L (15-37); Alanine Aminotransfer ALT/SGPT 59 U/L (16-61); Albumin, Serum 3.4 g/dL (3.2-5.0); Alkaline Phosphatase 111 U/L (45-117); Anion Gap 2 (5-15); BUN 17 mg/dL (7-18); BUN/Creat Ratio 12.8 RATIO (10-20); Calcium,Total 9.1 mg/dL (8.5-10.1); Chloride 106 mmol/L (98-107); Creatinine, Serum 1.33 mg/dL (0.70-1.30); EST Glomerular Filtration Rate 62 mL/min (>60); Est Glom Filt Rate - Afr Amer 76 mL/min (>60); Estimated Creatinine Clearance 72.35 ml/min; Globulin 4.5 g/dL (2.2-4.2); Glucose 94 mg/dL (74-106); Potassium 4.4 mmol/L (3.5-5.1); Protein, Total 7.9 g/dL (6.4-8.2); Sodium Level 135 mmol/L (136-145)
[2022-08-21 15:47] VITALS: BP 140/87; PULSE 95; RESP 18; O2SAT 98
== END 2022-08-21 15:48 | disposition home or self-care (01) ==
PROVIDERS: Emergency Provider Emergency Medicine; Visit Provider Emergency Medicine
DX: K52.9 Noninfective gastroenteritis and colitis, unspecified (principal); F17.210 Nicotine dependence, cigarettes, uncomplicated; Z20.822 Contact with and (suspected) exposure to COVID-19
CPT/HCPCS: 71045; 80048; 80076; 85025; 87428; 96361; 96374; 96375; 99283; J7030; A4216; J2405

== ENCOUNTER 2023-01-04 20:41 | Emergency (ER) | payer SELFPAY ==
[2023-01-04 20:41] VITALS: BP 128/88; PULSE 92; RESP 18; TEMP 36.7; O2SAT 97; BMI 35.0
--- NOTE | 2023-01-04 22:31 | ED.VIS.DENTA ---
HPI History of Present Illness Chief Complaint: Dental Informant: patient Narrative Narrative: Is a 42-year-old male with history of tobacco use, poor dentition and prior removal of his bottom teeth presenting with increased right molar dental pain and facial swelling now. He states his symptoms started 2 days ago but the swelling started today. He has been taking ibuprofen at home and last had it at 3 PM today. He states it is throbbing. He states heat makes it feel better. Denies difficulty swallowing. Denies any fever or chills. He denies any change with his voice. No other complaints or concerns at this time PFSH PFSH Home Medications ondansetron 4 mg disintegrating tablet 4 mg PO Q8H PRN PRN Nausea #10 tabs 08/21/22 [Rx Last Taken Unknown] amoxicillin 875 mg-potassium clavulanate 125 mg tablet 1 tab PO BID #20 tabs 01/04/23 [Rx Last Taken Unknown] ibuprofen 600 mg tablet 600 mg PO Q6H PRN PRN pain #20 TABLETS 01/04/23 [Rx Last Taken Unknown] Allergy/AdvReac Type Severity Reaction Status Date / Time doxycycline Allergy Rash Verified 01/04/23 20:43 Social History Smoking Status: Current every day smoker tobacco type: cigarettes ROS ROS ED Constitutional Constitutional ED: Denies chills or fever(s) Eyes Eyes: Denies change in vision ENT ENT ED: Reports other Details: Right upper dental pain, face swelling ; Denies ear pain Respiratory/Chest Respiratory/Chest: Denies cough or dyspnea Gastrointestinal Gastrointestinal: Denies nausea or vomiting Integumentary Denies rash EXAM Physical Exam Const Vital Signs: 01/04/23 20:41 Temperature 98.1 F Temperature Source Temporal Pulse Rate 92 Respiratory Rate 18 Blood Pressure 128/88 H Blood Pressure Mean 101 Pulse Ox 97 Oxygen Delivery Method Room Air Positive well nourished and well developed General Appearance ED: well developed and NAD HEENT HEENT Narrative: Normal tympanic membrane's bilaterally. Normal oropharynx. Patient is edentulous over the mandible. He is missing multiple upper teeth and the teeth that are remaining have significant erosions, cracked and carried. No obvious dental abscess appreciated/fluctuance. He has tenderness to palpation over the right upper first molar. Eyes PERRL Neck supple Chest Wall inspection of chest normal Resp normal respiratory effort and clear to auscultation bilaterally Cardio regular rate and regular rhythm Extremity normal to inspection Neuro oriented x3 and moves all extremities Sensorium / Orientation: alert Psych mental status grossly normal MDM MDM MDM Narrative Medical decision making narrative: Patient evaluated for worsening right upper dental pain and facial swelling. No airway obstruction. Is tender. Likely has periapical abscess given increased pain. Nothing that is drainable at this time. Will be started on Augmentin and Motrin. Given first dose in the emergency room. Is given our dental referral sheet. Counseled on tobacco cessation. Is offered dental block but declined. Given return precautions to the emergency room. Discharged home in stable condition. Discharge Plan Triage Chief Complaint: Dental ED Provider: Leigh Mccollum Dx/Rx/DC Orders Clinical Impression: Tobacco use disorder, continuous, Dental abscess Instructions: ED Dental Pain, ED Dental Abscess Prescriptions: New amoxicillin-pot clavulanate 875-125 mg tablet 1 tab PO BID Qty: 20 0RF ibuprofen 600 mg tablet 600 mg PO Q6H PRN PRN (Reason: pain) Qty: 20 0RF No Action ondansetron 4 mg tablet,disintegrating 4 mg PO Q8H PRN PRN (Reason: Nausea) Qty: 10 0RF Primary Care Provider: Care Physician,No Primary Referrals: Litzy Maurer [Non-Staff] - As soon as possible Care Physician,No Primary [Primary Care Provider] - Disposition Disposition: Home, Self Care
[2023-01-04] MEDS: Ibuprofen 600 MG Tablet PO (22:43)
[2023-01-04] MEDS: Amox/Clavulanate 875 MG Tablet PO (22:43)
== END 2023-01-04 22:59 | disposition home or self-care (01) ==
PROVIDERS: Emergency Provider Emergency Medicine; Visit Provider Emergency Medicine
DX: K04.7 Periapical abscess without sinus (principal); Z71.6 Tobacco abuse counseling; F17.210 Nicotine dependence, cigarettes, uncomplicated
CPT/HCPCS: 41800; 64999; 99282